=== PATIENT | female | born 1950 | race Asian ===

== ENCOUNTER 2024-01-18 23:11 | Inpatient (IN) | payer MEDICARE, SELFPAY ==
[2024-01-18] VITALS (7 sets, daily range): BP systolic 156–169; BP diastolic 75–89; BMI 23.9
[2024-01-18 19:24] LABS: % Basophils 0.1 % (0-2); % Eosinophils 1.1 % (0-6); % Immature Granulocytes 1.3 % (0-0.5); % Lymphocytes 20.6 % (20.5-51.1); % Monocytes 6.3 % (1.7-9.3); % Neutrophils 70.6 % (42.2-75.2); Absolute Eosinophils 0.2 10^3/uL (0-0.7); Absolute Immature Granulocytes 0.2 10^3/uL (0-0.05); Absolute Lymphocytes 2.9 10^3/uL (1.2-3.4); Absolute Monocytes 0.9 10^3/uL (0.1-0.6); Hematocrit 23.8 % (37.0-47.0); Hemoglobin 8.4 g/dL (12.0-16.0); Mean Corp Hgb Conc. 35.3 g/dL (33.0-37.0); Mean Corpuscular Hgb 29.3 pg (27.0-31.0); Mean Corpuscular Volume 82.9 fL (81.0-99.0); Mean Platelet Volume 9.7 fL (7.4-10.4); Nucleated Red Blood Cells % 0.1 %; Platelet Count 341 10^3/uL (130-400); Red Blood Cell Count 2.87 10^6/uL (4.20-5.40); Red Cell Dist. Width 13.6 % (11.5-14.5); White Blood Cell Count 14.2 10^3/uL (4.8-10.8)
[2024-01-18 19:45] LABS: ALT (SGPT) 24 U/L (0-35); AST (SGOT) 35 U/L (14-36); Albumin 4.4 g/dl (3.5-5.0); Alkaline Phosphatase 66 U/L (38-126); Blood Urea Nitrogen 12 mg/dl (7-17); Calcium 9.9 mg/dl (8.4-10.2); Carbon Dioxide 23 mmol/L (22-30); Chloride 85 mmol/L (98-107); Glucose 143 mg/dl (70-99); Potassium 4.2 mmol/L (3.5-5.1); Sodium 118 mmol/L (135-145); Total Bilirubin 1.2 mg/dl (0.2-1.3); Total Protein 7.3 g/dl (6.3-8.2); eGFR > 60.00
[2024-01-18 19:53] LABS: Troponin I < 0.012 ng/ml
--- NOTE | 2024-01-18 20:24 | ED.GENMED ---
History of Present Illness
General
Chief Complaint: Dizziness
Source: patient, spouse and family
Exam Limitations: none
Time Seen by Provider: 01/18/24 19:23
Nursing documentation reviewed up to this point in time: agreed with
Travel History
Have you had any contact with someone who has COVID-19?: No
Do you have any symptoms of coronavirus? Fever > 100 degrees, chills, cough, shortness of breath, sore throat, loss of taste or smell, muscle aches, or headache?: No
History of Present Illness
History of Present Illness:
73-year-old female with a past medical history of hypertension, hyperlipidemia, diabetes who presents to the emergency department with her family for evaluation of dizziness and headache. Patient had a left total knee replacement with Dr. Cedeno
this past . Since then she has had significant pain in the left knee. Initially this was treated with oxycodone which patient did not tolerate well with that she got drowsiness, dizziness, nausea and upset stomach. For this reason was
discontinued and instead patient was started on tramadol which produced similar side effects. This was also discontinued and since then patient has been taking just Tylenol with poor control of her pain. She has had persistent nausea she says
because the pain is quite severe. She has not been eating or drinking very much she says. She has not had any vomiting. Denies any diarrhea. She says that today she noticed she was starting to get headache and having worsening dizziness and so
she came to the emergency to be assessed.
Review of Systems
Review of Systems
All Other Systems: ROS reviewed and negative except as documented in HPI and ROS
Constitutional: Denies fever or chills
EENT: Denies sore throat or runny nose
Respiratory: Denies cough or trouble breathing
Cardiac: Denies chest pain or palpitations
ABD/GI: Reports nausea and constipated; Denies abdominal pain, vomiting or diarrhea
: Denies flank pain
Musculoskeletal: Reports joint pain (Left knee pain); Denies neck pain or back pain
Neurological: Reports dizzy and headache; Denies weakness or numbness
Phy Exam
Physical Exam
Physical Exam:
General: Awake, alert, oriented x3; no acute distress
Head: Normocephalic, atraumatic
Eyes: Conjunctiva normal, EOMI, pupils equal round reactive to light bilaterally
Throat: Airway intact, dry mucous membranes
Neck: Trachea midline, supple without meningismus
Lungs: Clear to auscultation bilaterally, no wheezing, rales, rhonchi
Heart: Regular rate and rhythm, no murmurs, gallops, or rubs
Abd: Soft, non distended, nontender
Neuro: Cranial nerves grossly intact, speech fluid
Extremities: Patient has dressing in place left knee no surrounding erythema or warmth, slight edema in the left lower extremity compared to the right; she has good pulses in all extremities
Scores
Heart Failure Risk
Heart Failure Risk Score: Not Applicable
Heart Score for Chest Pain Patients
STEMI patient?: Not applicable
Withdrawal Assessment of Alcohol
Withdrawal Assessment Completed?: Not applicable
Course
Orders/Labs/Results
Orders:
Orders
01/18/24 16:31
Electrocardiogram (*1) Urgent
Reason for Study: Chest Pain
EKG- Treatment ONCE
01/18/24 19:19
Complete Blood Count/With Diff Urgent
Comprehensive Metabolic Panel Urgent
Troponin I Urgent
01/18/24 20:10
NEPHROLOGY CONSULT Urgent
Consulting Provider: Alka Ruiz
Was physician already notified: Yes
Straight cath- Treatment ONCE
01/18/24 20:13
Ketorolac [Toradol] 15 mg IV NOW STA
01/18/24 20:25
Osmolality, Random Urine Urgent
Date Specimen was Collected: 01/18/24
Time Specimen was Collected: 20:16
Urine Creatinine Urgent
Date Specimen was Collected: 01/18/24
Time Specimen was Collected: 20:16
Urine Sodium Urgent
Date Specimen was Collected: 01/18/24
Time Specimen was Collected: 20:16
01/18/24 21:18
3% Sodium Chloride 250 ml [Sodium Chloride 3%] 250 ml IV ONCE
Abnormal Lab Results
01/18/24 01/18/24
19:19 20:25
WBC 14.2 H 10^3/uL
(4.8-10.8)
RBC 2.87 L 10^6/uL
(4.20-5.40)
Hgb 8.4 L g/dL
(12.0-16.0)
Hct 23.8 L %
(37.0-47.0)
Abs Immat Gran (auto) 0.2 H 10^3/uL
(0-0.05)
Absolute Neuts (auto) 10.0 H 10^3/uL
(1.4-6.5)
Absolute Monos (auto) 0.9 H 10^3/uL
(0.1-0.6)
Immature Gran % 1.3 H %
(0-0.5)
Sodium 118 L* mmol/L
(135-145)
Chloride 85 L mmol/L
(98-107)
Creatinine 0.5 L mg/dL
(0.6-1.0)
Glucose 143 H mg/dl
(70-99)
Urine Sodium 125 H mmol/L
(30-90)
01/18/24 19:19
01/18/24 19:19
Vital Signs
Initial and Last Documented VS:
Initial Vital Signs
Temp Pulse Resp BP Pulse Ox
36.7 C 85 20 158/81 100
01/18/24 16:26 01/18/24 16:26 01/18/24 16:26 01/18/24 16:26 01/18/24 16:26
Last Documented Vital Signs
Temp Pulse Resp BP Pulse Ox
37.0 C 84 25 165/78 98
01/18/24 20:02 01/18/24 20:02 01/18/24 20:02 01/18/24 20:02 01/18/24 20:02
MDM/Problems Addressed
Differential Diagnosis Includes:
Medication side effect, dehydration, electrolyte derangement
MDM/Problems Addressed:
73-year-old female presents for evaluation of headache and dizziness in the setting of recent surgery, poorly controlled knee pain and poor p.o. intake. Hypertensive but otherwise normal vitals. Physical exam as above. Plan to place an IV check
labs including CBC and a CMP. Check an EKG. Will treat headache with Toradol. Treat with IV fluids. Monitor closely reassess after the above.
Labs reviewed: CBC shows leukocytosis to 14.2 and anemia at 8.4�no priors available for comparison but suspect likely related to recent surgery. CMP shows hyponatremia to 118 with glucose of 143; creatinine normal. Added urine sodium and
osmolality. Initial plan was for normal saline bolus this was held pending nephrology recommendations�discussed with nephrology and will plan to provide fluid recommendations pending urine sodium and osmolality studies. Plan for admission pending
nephrology recommendations.
Urine sodium 125, urine osmolality 332. Discussed with nephrology recommended initiating 3% normal saline at 25 cc/h with every 4 hours sodium checks. Goal sodium 123 by the morning. Will admit for further management. Case discussed with
hospitalist for admission.
*Pulse Oximetry
Patient hypoxic: no
*EKG
Interpreted by ED Provider?: Yes
Heart Rate: 80
Rate: normal
Rhythm: sinus
[place]: normal axis
Interval: normal interval
QRS Pattern: normal QRS
Ischemia: no ischemia
*Critical Care Note
Total Time (30-74mins, 75-104mins- exclusive of procedures): Not Applicable
Data Reviewed
Source: patient, spouse and family
Patient Management
Discussion with other providers: Hospitalist (Discussed with hospitalist) and Director Of Design (Discussed with nephrology)
Escalation/DeEscalation of care consider admission/obs:
Admission indicated
ED Attending Note
-
Portions of this chart may have been created with voice recognition software.� Occasional wrong word or��sound alike� substitutions may have occurred due to the inherent limitations of voice recognition software.
Discharge Plan
Departure
Patient Disposition: Admit
Date of Disposition: 01/18/24
Time of Disposition: 21:19
Admit to doctor: Camron
Presentation/result/management discussed w/ accepting MD/DO: Hospitalist
Discharge Problem:
Acute hyponatremia
Prescriptions:
No Action
sennosides [senna] 8.6 mg Tablet
8.6 mg PO BIDPRN PRN (Reason: constipation-if bm aftr miralax)
acetaminophen [Tylenol] 325 mg Tablet
650 mg PO Q4HPRN PRN (Reason: mild pain)
polyethylene glycol 3350 [Miralax] 17 gram Powder In Packet
17 g PO DAILYPRN PRN (Reason: constipation)
aspirin 81 mg Tablet,Delayed Release (Dr/Ec)
81 mg PO DAILY
famotidine [Pepcid] 20 mg Tablet
20 mg PO DAILY
metformin 1,000 mg Tablet
1,000 mg PO BID
bisacodyl [Dulcolax (bisacodyl)] 5 mg Tablet,Delayed Release (Dr/Ec)
10 mg PO DAILYPRN PRN (Reason: constipation)
losartan-hydrochlorothiazide 50-12.5 mg Tablet
1 tab PO DAILY
simethicone [Gas-X] 80 mg Tablet,Chewable
80 mg PO TIDPRN PRN (Reason: gas pains)
cholecalciferol (vitamin D3) [Vitamin D3] 25 mcg (1,000 unit) Tablet
25 mcg PO DAILY
Lipitor
1 tab PO DAILY
Patient Comments:
no record at pharamcy or ecw or dose or directions
Referrals:
UNKNOWN - PT DOES,NOT KNOW [Unknown Provider] -
Interventions
Interventions:
*Risk Screen - Suicide Last Done: 01/18/24 16:26
*General Assessment Last Done: 01/18/24 16:26
*Neglect/Abuse Screening Last Done: 01/18/24 16:26
ED- Neurological Assessment Last Done: 01/18/24 20:00
[2024-01-18] MEDS: TORADOL 15 MG IV (20:29)
[2024-01-18 20:36] LABS: Osmolality Urine 332 mOsm/kg (300-900)
[2024-01-18 20:52] LABS: Urine Sodium 125 mmol/L (30-90)
[2024-01-18] MEDS: SODIUM CHLORIDE 3% 250 IV (22:06)
--- NOTE | 2024-01-18 22:55 | HPS.HSE ---
Addendum entered and electronically signed by Yang Lyon DO 01/19/24 00:08:
Patient seen and examined independently. Agree with findings and plan as set forth by Salma Damian PA-C.
Patient is a 73y F with PMH significant for hypertension, DM-II and recent L TKA (01/12/24) who presents to ED complaining of headache and dizziness. Patient states that JOSEPH is 10/10 and in the frontal / apical areas. Patient took 2 doses of
oxycodone following her surgery and began to feel dizzy / drowsy. Family notes that she has had very poor PO intake since the procedure. She has been taking tramadol and meloxicam for pain instead of the oxycodone. She had initial post-op
constipation and took bowel regimen. She has had subsequent diarrhea. Patient has had headache for the past 2 days and presented to the ED today for evaluation.
She denies history of severe / chronic headaches. She denies any prior history of sodium issues, hyponatremia.
In the ED, patient complains of heartburn in addition to her headache.
Ass:
Severe Symptomatic Hyponatremia
s/p Left TKA
GERD
Normocytic Anemia / Blood Loss Anemia
Benign Hypertension
DM-II
Plan:
Admit to ICU for further evaluation and treatment.
Hypertonic saline gently overnight and follow frequent Na levels for goal Na = 123 by the AM.
CT head done in the ED without obvious abnormality.
Hold HCTZ / NSAIDs.
Nephrology evaluation in the AM.
Supportive care including pain control / headache treatment.
Monitor for any new/ worsening symptoms.
PT / OT evaluations once stable for continued L knee therapy.
Check TFTs, cortisol, etc.
Original Note:
Family Physician
-
Family Physician: Isabela Lazaro
Chief Complaint
-
Headache
History of Present Illness
Patient is a 73 y/o female with PMH of hypertension, hyperlipidemia, and diabetes mellitus type II who presents s/p total left knee replacement on 01/12/24 complaining of severe headache and dizziness. Following her surgery, patient took 2
doses of oxycodone after which she experienced drowsiness, dizziness, and abdominal discomfort. The oxycodone was discontinued and she was prescribed tramadol which gave her a similar adverse reaction. She has since been taking Tylenol with poor
pain control. She reports very minimal PO intake since her surgery. She was constipated which resolved with taking Senna and drinking prune juice, then she developed subsequent diarrhea. She reports 10/10 headache pain for the past few days and says
it kept her from participating in her PT session today. She admits to normal urine output since her surgery. She admits to taking Meloxicam as outpatient since the surgery. She denies fever, chills, and palpitations.
Medical History
Past Medical History
Past Medical History: Reports Other
Additional Past Medical History:
Essential Hypertension
Hyperlipidemia
Diabetes Mellitus, Type II
Osteoarthritis
Past Surgical History: Reports Other
Additional Past Surgical History:
Left Total Knee Replacement
Social History
Tobacco: Non-smoker
Alcohol: None
Family History
Family History: Not pertinent
Allergies / Home Medications
Allergies reflects when Allergies were last updated in [email or web address].
Home Medications with original date entered in [email or web address]
Allergy/Medication List:
Allergies
Allergy/AdvReac Type Severity Reaction Status Date / Time
acetaminophen [From Percocet] Allergy Nausea Verified 01/18/24 16:25
oxycodone [From Percocet] Allergy Nausea Verified 01/18/24 16:25
Penicillins Allergy Unknown Verified 01/18/24 16:25
Sulfa (Sulfonamide Allergy Unknown Verified 01/18/24 16:25
Antibiotics)
tramadol Allergy Nausea Verified 01/18/24 16:25
Home Medications
Lipitor 1 tab PO DAILY 01/18/24
acetaminophen 325 mg tablet (Tylenol) 650 mg PO Q4HPRN PRN mild pain 01/18/24
aspirin 81 mg tablet,delayed release 81 mg PO DAILY 01/18/24
bisacodyl 5 mg tablet,delayed release (Dulcolax (bisacodyl)) 10 mg PO DAILYPRN PRN constipation 01/18/24
cholecalciferol (vitamin D3) 25 mcg (1,000 unit) tablet (Vitamin D3) 25 mcg PO DAILY 01/18/24
famotidine 20 mg tablet (Pepcid) 20 mg PO DAILY 01/18/24
losartan 50 mg-hydrochlorothiazide 12.5 mg tablet 1 tab PO DAILY 01/18/24
metformin 1,000 mg tablet 1,000 mg PO BID 01/18/24
polyethylene glycol 3350 17 gram oral powder packet (Miralax) 17 g PO DAILYPRN PRN constipation 01/18/24
sennosides 8.6 mg tablet (senna) 8.6 mg PO BIDPRN PRN constipation-if bm aftr miralax 01/18/24
simethicone 80 mg chewable tablet 80 mg PO TIDPRN PRN gas pains 01/18/24
Meloxicam 7.5mg PO BID
Review of Systems
-
A 12 point ROS was completed and negative except as noted: Yes
Constitutional: Denies Fever or Chills
Respiratory: Denies Cough or Trouble Breathing
Cardiac: Denies Chest Pain or Palpitations
Abdomen/GI: Reports See HPI
Physical Exam
Vital Signs
Vital Signs
Temp Pulse Resp BP Pulse Ox
98.6 F 84 17 156/76 100
01/18/24 20:02 01/18/24 22:07 01/18/24 22:07 01/18/24 22:07 01/18/24 22:07
Physical Exam
General: Well Developed, Well Nourished and No Apparent Distress
HEENT: NormoCephalic and Anicteric
Respiratory: Clear and Non Labored Respirations
Cardiac: S1/S2 and Regular Rhythm
GI: Soft, Non Tender and Non Distended
Rectal: Deferred by Provider
Musculoskeletal: No Clubbing, No Cyanosis and Other (Left Knee with aquacel dressing in place)
Skin: Warm and Dry
Neuro: Awake, Alert, Oriented and Nonfocal/grossly intact
Laboratory Results
-
01/18/24 19:19
01/18/24 19:19
Laboratory Results
Total Bilirubin 1.2 mg/dl (0.2-1.3) 01/18/24 19:19
AST 35 U/L (14-36) 01/18/24 19:19
ALT 24 U/L (0-35) 01/18/24 19:19
Alkaline Phosphatase 66 U/L (38-126) 01/18/24 19:19
Troponin I < 0.012 ng/ml 01/18/24 19:19
Data Reviewed
-
Lab Data: Labs Reviewed by me
Impression/Plan
-
Acute / Severe Hyponatremia
-Admit to ICU for close monitoring and frequent sodium check
-Consult Nephrology
-Continue 3% sodium solution
-Monitor sodium every 4 hours
-Hold HCTZ
-Hold Meloxicam
Normocytic Anemia
-No prior labs for comparison, but suspect post-op blood loss
-Check iron studies
-Monitor Hgb closely
Essential Hypertension
-Continue losartan
-HCTZ on hold due to hyponatremia
Diabetes Mellitus, Type II
-Hold metformin
-Monitor sugars and continue coverage insulin
Recent Left Total Knee Replacement on Jan 12
-Consult PT/OT
-Continue Tylenol for pain
-Avoid NSAIDs
DVT proph: SCDs
Code Status: Full Code
[2024-01-18 23:44] LABS: Iron 74 ug/dl (37-170)
[2024-01-18 23:48] LABS: Percent Saturation 22 % (20-50); Total Iron Binding Capacity 325 ug/dl (265-497)
[2024-01-19] VITALS (37 sets, daily range): BP systolic 100–180; BP diastolic 64–108; PULSE 88–124; O2SAT 95; BMI 21.5
[2024-01-19] MEDS: MAALOX 30 ML PO (00:52)
[2024-01-19 01:03] LABS: Folate 10.7 ng/ml (2.76-20); Vitamin B12 742 pg/ml (239-931)
[2024-01-19] MEDS: OFIRMEV 100 IV (01:17)
[2024-01-19] MEDS: ATIVAN 0.5 MG IV (01:18)
[2024-01-19] MEDS: BENADRYL 25 MG IV (01:18)
[2024-01-19] MEDS: REGLAN 10 MG IV (01:18)
[2024-01-19 01:35] LABS: INR 1.04; PT 13.6 Sec (11.4-14.6)
[2024-01-19 01:36] LABS: APTT 36.8 Sec (23.4-35.0)
--- NOTE | 2024-01-19 01:37 | PTCARENOTE ---
received patient from ER. pt admits to 10/10 head pain, feels like an aching, sensitive to light. oriented x3. pupils b/l 2mm sluggish. SR on monitor. afebrile. + pulses. on RA, denies SOB. + bowel sounds. labs sent. medication given for head pain -
see JAN. SCDs on. dressing to left knee from surgery C/D/I. family at bedside, updated by this RN and the ICU [employer] TE[employer]IC. daughter staying overnight. plan of care ongoing.
[2024-01-19 01:38] LABS: Blood Urea Nitrogen 12 mg/dl (7-17); Calcium 9.5 mg/dl (8.4-10.2); Carbon Dioxide 27 mmol/L (22-30); Chloride 86 mmol/L (98-107); Estimated Creatinine Clearance 50 ml/min; Glucose 131 mg/dl (70-99); Potassium 3.7 mmol/L (3.5-5.1); Sodium 120 mmol/L (135-145); eGFR > 60.00
--- NOTE | 2024-01-19 05:32 | PTCARENOTE ---
patient reassessed. pt drowsy but oriented x3. admits that JOSEPH has improved after medication. ice pack given for dull ache. otherwise assessents unchanged. daughter at bedside overnight. 3% NS remains infusing. Na improved to 120 on 0100 BMP. AM labs
attempted, phlebotomy contacted to draw. plan of care ongoing.
[2024-01-19 06:40] LABS: Hematocrit 22.8 % (37.0-47.0); Hemoglobin 7.8 g/dL (12.0-16.0); Mean Corp Hgb Conc. 34.2 g/dL (33.0-37.0); Mean Corpuscular Hgb 28.8 pg (27.0-31.0); Mean Corpuscular Volume 84.1 fL (81.0-99.0); Mean Platelet Volume 11.5 fL (7.4-10.4); Platelet Count 313 10^3/uL (130-400); Red Blood Cell Count 2.71 10^6/uL (4.20-5.40); Red Cell Dist. Width 13.6 % (11.5-14.5); White Blood Cell Count 11.2 10^3/uL (4.8-10.8)
[2024-01-19 07:01] LABS: Blood Urea Nitrogen 11 mg/dl (7-17); Calcium 9.3 mg/dl (8.4-10.2); Carbon Dioxide 27 mmol/L (22-30); Chloride 91 mmol/L (98-107); Estimated Creatinine Clearance 50 ml/min; Glucose 121 mg/dl (70-99); Magnesium 1.4 mg/dl (1.6-2.3); Potassium 4.1 mmol/L (3.5-5.1); Sodium 123 mmol/L (135-145); eGFR > 60.00
[2024-01-19 07:31] LABS: Cortisol, Random 9.5 ug/dl
[2024-01-19 07:38] LABS: TSH Reflex To Free T4 5.74 uIU/ml (0.47-4.68)
[2024-01-19] MEDS: NOVOLOG FLEXPEN-LOW RESISTANCE SC (07:45)
[2024-01-19] MEDS: COZAAR 50 MG PO (07:45)
[2024-01-19] MEDS: ASPIR LOW (ENTERIC COATED) 81 MG PO (07:45)
[2024-01-19] MEDS: PROTONIX IV 40 MG IV (07:46)
[2024-01-19] MEDS: PEPCID 20 MG PO (07:46)
[2024-01-19] MEDS: VITAMIN D3 (cholecalciferol) 25 MCG PO (07:46)
--- NOTE | 2024-01-19 07:51 | CON.ORTHO ---
Addendum entered and electronically signed by Salbador Cedeno MD 01/19/24 16:05:
I evaluated the patient at bedside and reviewed labs and clinical data. The patient reports felling better today than yesterday. Knee pain well controlled
The patient is awake and alert. Left knee bandage CDI. NV intact distally.
73F 1 week sp left TKA 01/12/24.
- Appreciate medical recommendations for hyponatremia
- Pain control PRN
- Discussed working on left knee ROM
- Dressing to remain in place until 2 weeks post op follow up
- PT/OT as able given medical status, okay up out of bed
- Continue ASA daily for DVT ppx
Madhu Cedeno MD
-
Original Note:
Consultation
-
Date/Time Consultation Requested: 01/19/2024
Date/Time Consultation Performed: 01/19/2024
Requesting Provider: Salma Mohr PA-C
Performing Provider: Dominique Taylor PA-C, for Dr. Andrzej Heaton
Reason for Consultation: Hyponatremia s/p left TKA on 01/12/2024
Consultation - Orthopedics
History
HPI: This is a 73-year-old female who was admitted to [facility] with hyponatremia. She is now 1 week status post a left total knee arthroplasty. This was performed under the direction of Dr. Cedeno on 01/12/2024 on an outpatient basis at
[facility] surgical suites. Postoperatively, she was unable to tolerate the oxycodone or tramadol. Both medications caused dizziness as well as abdominal discomfort. She did initially have constipation, which resolved with senna. Ultimately,
she did end up with diarrhea. Following the surgery, she has also had minimal appetite, and a poor oral intake. She has attended 1 session of outpatient physical [facility] at [facility], but was unable to progress much due to the dizziness,
headache, and fatigue. The dizziness and headache is what prompted her to present to [facility] last evening where she was noted to have a sodium level of 118. A CT scan of the head was also performed and negative for any acute
abnormalities. She was admitted to the ICU for further management. Upon my arrival this morning, the patient was very somnolent. Most of her history was obtained from her daughter.
Past medical history: Significant for hyperlipidemia, hypertension, type 2 diabetes, GERD.
Past surgical history: Left TKA.
Family history: Noncontributory.
Social history: Denies tobacco or alcohol use. Lives at home with family.
Review of systems: Unable to obtain secondary to somnolence
Allergies / Home Medications
Allergy/AdvReac Type Severity Reaction Status Date / Time
acetaminophen [From Percocet] Allergy Nausea Verified 01/18/24 16:25
oxycodone [From Percocet] Allergy Nausea Verified 01/18/24 16:25
Penicillins Allergy Unknown Verified 01/18/24 16:25
Sulfa (Sulfonamide Allergy Unknown Verified 01/18/24 16:25
Antibiotics)
tramadol Allergy Nausea Verified 01/18/24 16:25
Medication Instructions Recorded
Lipitor 1 tab PO DAILY 01/18/24
acetaminophen 325 mg tablet 650 mg PO Q4HPRN PRN mild pain 01/18/24
(Tylenol)
aspirin 81 mg tablet,delayed 81 mg PO DAILY 01/18/24
release
bisacodyl 5 mg tablet,delayed 10 mg PO DAILYPRN PRN constipation 01/18/24
release (Dulcolax (bisacodyl))
cholecalciferol (vitamin D3) 25 25 mcg PO DAILY 01/18/24
mcg (1,000 unit) tablet (Vitamin
D3)
famotidine 20 mg tablet (Pepcid) 20 mg PO DAILY 01/18/24
losartan 50 mg-hydrochlorothiazide 1 tab PO BID 01/18/24
12.5 mg tablet
meloxicam 7.5 mg tablet 7.5 mg PO DAILY 01/18/24
metformin 1,000 mg tablet 1,000 mg PO BID 01/18/24
polyethylene glycol 3350 17 gram 17 g PO DAILYPRN PRN constipation 01/18/24
oral powder packet (Miralax)
sennosides 8.6 mg tablet (senna) 8.6 mg PO BIDPRN PRN 01/18/24
constipation-if bm aftr miralax
simethicone 80 mg chewable tablet 80 mg PO TIDPRN PRN gas pains 01/18/24
Vital Signs / Lab Results
Temp Pulse Resp BP Pulse Ox
97.2 F 81 15 142/73 98
01/19/24 07:40 01/19/24 07:45 01/19/24 07:15 01/19/24 07:45 01/19/24 07:15
01/19/24 06:07
Physical examination:
General: Well-developed, well-nourished female. Resting comfortably in bed.
HEENT: Atraumatic, normocephalic.
Heart: Regular rate and rhythm.
Lungs: Normal breathing on room air, no audible wheezing.
Left knee: Dressing in place over anterior aspect of knee is clean, dry, and intact. Mild swelling. Minimal ecchymoses. Calf soft and nontender to palpation. Gentle range of motion without significant discomfort.
Assessment / Plan
Assessment: Hyponatremia status post left TKA on 01/12/2024.
Plan: Unfortunately, Ms. Solomon developed symptomatic hyponatremia following her knee replacement 1 week ago. Overall, her knee examines well this morning. She was very somnolent on exam, so I tried not to disturb her too much. Appreciate
attending medical providers efforts in replenishing sodium levels. Will need to find adequate pain management regimen going forward that she can tolerate, but for now continue with Tylenol as needed. Once medically stable, may resume PT to
tolerance. Will continue to follow along while she is inpatient.
[2024-01-19 08:09] LABS: Free T4 1.76 ng/dl (0.78-2.19)
--- NOTE | 2024-01-19 08:20 | CON.INTV ---
Consultation
Consultation Request
Date/Time Consultation Requested: 01/19/202439
Date/Time Consultation Performed: 01/19/2024818
Requesting Provider: Salma Damian PA-C
Performing Provider: Dr. Mancia
Reason for Consultation: Severe hyponatremia
Medical History
-
Chief Complaint: Dizziness
History of Present Illness:
73-year-old female with past medical history of hypertension, DM type II and hyperlipidemia who presents with high blood pressure and dizziness that started on the morning of arrival to the ER. Patient says she had knee surgery on [employer], and
has been taking oxycodone which caused dizziness and nausea. Patient also endorsed headache in the ER. Vitals initially showed she was afebrile to 98.6 �F, WA: 79 bpm, RR: 17 breaths/min, initial BP 168/77 and SpO2 100% on room air. Labs showed
hyponatremia to 118, hypochloremia to 85, glucose 143, WBC 14.2, Hb 8.4, and platelet count 341. Urine sodium elevated at 125 and urine osmolarity 322. 3% NS was ordered for the patient and Toradol given for the headache. Patient was transferred
to the ICU for further care and critical care services consulted for additional management/recommendations.
When I saw the patient she was sitting in the chair, in no acute distress, saying she still has headache but is much improved compared to admission. It is 3 out of 10 on pain scale and located in the front of her forehead. She is on room air
saturating 100%. Last sodium this morning is 123. She currently denies chest pain, shortness of breath, abdominal pain, nausea, fevers or chills.
PMHx: Hypertension, DM type II, osteoarthritis, hyperlipidemia
PSHx: Left TKA
Past Medical History
Past Medical History: Other (above as per HPI)
Past Surgical History: Other (above as per HPI)
Social History
Tobacco: Non-smoker
Alcohol: None
Drug: None
Living: With Family
Family History
Family History: Reviewed & Not Pertinent
Allergies / Home Medications
Allergies
Allergy/AdvReac Type Severity Reaction Status Date / Time
acetaminophen [From Percocet] Allergy Nausea Verified 01/18/24 16:25
oxycodone [From Percocet] Allergy Nausea Verified 01/18/24 16:25
Penicillins Allergy Unknown Verified 01/18/24 16:25
Sulfa (Sulfonamide Allergy Unknown Verified 01/18/24 16:25
Antibiotics)
tramadol Allergy Nausea Verified 01/18/24 16:25
Home Medications
Medication Instructions Recorded Confirmed Last Taken Type
Lipitor 1 tab PO DAILY 01/18/24 01/18/24 Unknown History
acetaminophen 325 mg tablet 650 mg PO Q4HPRN PRN mild pain 01/18/24 01/18/24 01/18/24 History
(Tylenol)
aspirin 81 mg tablet,delayed 81 mg PO DAILY 01/18/24 01/18/24 Unknown History
release
bisacodyl 5 mg tablet,delayed 10 mg PO DAILYPRN PRN constipation 01/18/24 01/18/24 01/12/24 History
release (Dulcolax (bisacodyl))
cholecalciferol (vitamin D3) 25 25 mcg PO DAILY 01/18/24 01/18/24 Unknown History
mcg (1,000 unit) tablet (Vitamin
D3)
famotidine 20 mg tablet (Pepcid) 20 mg PO DAILY 01/18/24 01/18/24 01/18/24 History
losartan 50 mg-hydrochlorothiazide 1 tab PO BID 01/18/24 01/18/24 Unknown History
12.5 mg tablet
meloxicam 7.5 mg tablet 7.5 mg PO DAILY 01/18/24 01/18/24 Unknown History
metformin 1,000 mg tablet 1,000 mg PO BID 01/18/24 01/18/24 01/17/24 History
polyethylene glycol 3350 17 gram 17 g PO DAILYPRN PRN constipation 01/18/24 01/18/24 01/17/24 History
oral powder packet (Miralax)
sennosides 8.6 mg tablet (senna) 8.6 mg PO BIDPRN PRN 01/18/24 01/18/24 01/17/24 History
constipation-if bm aftr miralax
simethicone 80 mg chewable tablet 80 mg PO TIDPRN PRN gas pains 01/18/24 01/18/24 01/18/24 History
Review of Systems
-
History Source: Patient
All other systems: Negative unless noted (12 point ROS performed and is negative unless mentioned above.)
Vitals / Labs / Diagnostic Testing
Vital Signs
Temp Pulse Resp BP Pulse Ox
97.2 F 76 16 167/86 97
01/19/24 07:40 01/19/24 08:15 01/19/24 08:15 01/19/24 08:00 01/19/24 08:15
Lab Data
01/19/24 06:07
Laboratory Results
01/19/24
01:06
PT 13.6
INR 1.04
APTT 36.8 H
Diagnostic Testing:
Physical Exam
-
HEENT: Normocephalic and Anicteric
Cardiovascular: S1/S2 and Peripheral Edema (negative)
Respiratory: Clear, Wheeze (negative), Rales (negative), Rhonchi (negative) and Non-Labored Respirations
GI: Soft, Non Distended and Non Tender
Neurology: AO x 3
Skin: Warm and Dry
General: Comfortable and Chills (negative)
Assessment
-
Assessment: 73-year-old female with past medical history of hypertension, DM type II and hyperlipidemia who presents with high blood pressure and dizziness that started on the morning of arrival to the ER. Patient says she had knee surgery on
[employer], and has been taking oxycodone which caused dizziness and nausea. Patient also endorsed headache in the ER. Vitals initially showed she was afebrile to 98.6 �F, WA: 79 bpm, RR: 17 breaths/min, initial BP 168/77 and SpO2 100% on room
air. Labs showed hyponatremia to 118, hypochloremia to 85, glucose 143, WBC 14.2, Hb 8.4, and platelet count 341. Urine sodium elevated at 125 and urine osmolarity 322. 3% NS was ordered for the patient and Toradol given for the headache.
Patient was transferred to the ICU for further care and critical care services consulted for additional management/recommendations.
Chronic medical conditions [employer]: Hypertension, DM type II, osteoarthritis, hyperlipidemia
Impression:
#Severe hyponatremia s/p 3% - likely due to reduced PO intake (given low serum Cl) in setting of HCTZ use (which explains the high Diony); SIADH also on differential
#Anemia
#Recent left [facility] [place]
#HTN
#Headache
Plan:
- Nephrology consulted ---> 3% going to be resumed
- continue to trend serum Na q4hr
- Careful not to over-correct Na level --> goal correction of <8-10mmol/L in 24 hrs, and <16-18mmol/L in 48 hrs
- Hold HCTZ or any other medication that cause hyponatremia at this time
- Pain control - avoid opiates as that can cause SAIDH
- Check serum uric acid --> 3.8
- Maintain MAP>65
- Maintain euglycemia with goal BG 140-180
- Replete K>3.5, Mg>1.8
- DVT ppx
Dispo: Downgrade out of ICU to IMU assuming her afternoon serum Na is greater than 120. Once patient is downgraded then the bottling room worker/pulmonary service will sign off. Thank you for allowing us to be involved in the care of this patient. Please
reconsult if there are any additional questions/concerns, or if respiratory issues develop.
Data:
CT Head 01-18-2024:No acute intracranial abnormality noted.
--- NOTE | 2024-01-19 09:52 | PTCARENOTE ---
recd pt 0715 handoff in room, family present. VS noted. c/o headache persisting denies need for pain med at this time, light sensitive. OOB assist 1 and RW to BSC then recliner, tolerated. 3% saline infused, repeat labs pending this am. Seen by
Dr. Mary. Updated on plan of care, no questions at this time.
--- NOTE | 2024-01-19 11:04 | W.CON.NEPH ---
Consultation
-
Date/Time Consultation Requested: 01/18/242009
Date/Time Consultation Performed: 01/19/24 1115
Requesting Provider: Yang Potts
Performing Provider: Alka Jean
Reason for Consultation: hyponatremia
Medical History
-
Chief Complaint: JOSEPH and dizzy
History of Present Illness:
73y F with PMH significant for hypertension, DM-II on metformin, HTN on Losartan and HCTZ, and recent L TKA (01/12/24) who presents to ED complaining last night of headache and dizziness.Reportedly pt could not tolerate oxy or tramadol with SEs,
dizzy, drowzy and later decreased po intake. �She repoertedly also on meloxicam for pain which also gave same symp.� She had initial post-op constipation and took bowel regimen and later had subsequent diarrhea.� Patient has had headache for the
past [address] [employer] [address]. On admit sodium was at 118, U osmo 332, U na 125. She was started on 3% saline overnight and sodium improved to 123 this am.
She denies any prior history of sodium issues, hyponatremia.
Past Medical History
Essential Hypertension
Hyperlipidemia
Diabetes Mellitus, Type II
Osteoarthritis
Past Surgical History: Other (Left Total Knee Replacement)
Social History
Tobacco: Non-Smoker
Drug: None
Living: With Family
Family History
sister with ESRD
Allergies / Home Medications
Allergy/AdvReac Type Severity Reaction Status Date / Time
acetaminophen [From Percocet] Allergy Nausea Verified 01/18/24 16:25
oxycodone [From Percocet] Allergy Nausea Verified 01/18/24 16:25
Penicillins Allergy Unknown Verified 01/18/24 16:25
Sulfa (Sulfonamide Allergy Unknown Verified 01/18/24 16:25
Antibiotics)
tramadol Allergy Nausea Verified 01/18/24 16:25
Medication Instructions Recorded Confirmed Type
Lipitor 1 tab PO DAILY 01/18/24 01/18/24 History
acetaminophen 325 mg tablet 650 mg PO Q4HPRN PRN mild pain 01/18/24 01/18/24 History
(Tylenol)
aspirin 81 mg tablet,delayed 81 mg PO DAILY 01/18/24 01/18/24 History
release
bisacodyl 5 mg tablet,delayed 10 mg PO DAILYPRN PRN constipation 01/18/24 01/18/24 History
release (Dulcolax (bisacodyl))
cholecalciferol (vitamin D3) 25 25 mcg PO DAILY 01/18/24 01/18/24 History
mcg (1,000 unit) tablet (Vitamin
D3)
famotidine 20 mg tablet (Pepcid) 20 mg PO DAILY 01/18/24 01/18/24 History
losartan 50 mg-hydrochlorothiazide 1 tab PO BID 01/18/24 01/18/24 History
12.5 mg tablet
meloxicam 7.5 mg tablet 7.5 mg PO DAILY 01/18/24 01/18/24 History
metformin 1,000 mg tablet 1,000 mg PO BID 01/18/24 01/18/24 History
polyethylene glycol 3350 17 gram 17 g PO DAILYPRN PRN constipation 01/18/24 01/18/24 History
oral powder packet (Miralax)
sennosides 8.6 mg tablet (senna) 8.6 mg PO BIDPRN PRN 01/18/24 01/18/24 History
constipation-if bm aftr miralax
simethicone 80 mg chewable tablet 80 mg PO TIDPRN PRN gas pains 01/18/24 01/18/24 History
Review of Systems
-
all complete 12 point ROS have been inquired and found negative other than stated in HPI
Physical Exam
Vital Signs
Vital Signs
Temp Pulse Resp BP Pulse Ox
97.2 F 76 16 167/86 97
01/19/24 07:40 01/19/24 08:15 01/19/24 08:15 01/19/24 08:00 01/19/24 08:15
Lab Results
WBC 11.2 10^3/uL (4.8-10.8) H 01/19/24 06:07
RBC 2.71 10^6/uL (4.20-5.40) L 01/19/24 06:07
Hgb 7.8 g/dL (12.0-16.0) L 01/19/24 06:07
Hct 22.8 % (37.0-47.0) L 01/19/24 06:07
Plt Count 313 10^3/uL (130-400) 01/19/24 06:07
Potassium Cancelled 01/19/24 13:00
Chloride Cancelled 01/19/24 13:00
Carbon Dioxide Cancelled 01/19/24 13:00
BUN Cancelled 01/19/24 13:00
Creatinine Cancelled 01/19/24 13:00
eGFR Cancelled 01/19/24 13:00
Glucose Cancelled 01/19/24 13:00
Calcium Cancelled 01/19/24 13:00
Albumin 4.4 g/dl (3.5-5.0) 01/18/24 19:19
CT head negative for acute change
U osmo 332, U na 125
TSH 5.74, FT4 1.76
Physical Exam
General: Awake, Alert, Oriented and AOx3
HEENT: EOMI and Anicteric
Respiratory: Clear, Normal Excursion and Nonlabored Respirations
Cardiac: S1/S2 and Regular Rate/Rhythm
Abdomen: Soft, Nontender and Nondistended
Musculoskeletal: No Clubbing, No Cyanosis and No Edema
Skin: No Rash
Neuro: Nonfocal/Grossly Intact
Psych: Mood/afflect pleasant, Insight/judgement good and Appropriate
Assessment/Plan
-
IMP:
Severe Symptomatic Hyponatremia
s/p Left TKA 01/09
GERD
Normocytic Anemia / Blood Loss Anemia
Benign Hypertension
DM-II
Hypomagnesemia
Plan:
A/w symptomatic hyponatremia level of 118
suspect multifactorial, ADH mediated U osmo 332, U na high
Was on HCTZ, poor po intake, NSAIDs, Pain
sodium improving appropriately with 3% saline overnight
repeat is pending , may resume 3% if needed, q4h labs
gold sodium close to 130 by tomorrow
no HCTZ indefinitely
TSH slightly up but FT4 normal, cortisol ok
replace mg
BP are high increase Losartan, add amlodipine
follow h/h adequate Fe stores
pain control
d/w nursing
Data Reviewed
-
Radiology: Report Reviewed by me
Labs: Labs Reviewed by me and Discussed with Nurse
[2024-01-19 11:21] LABS: Sodium 120 mmol/L (135-145)
--- NOTE | 2024-01-19 11:38 | CM ---
CM following re: discharge planning.
Reviewed pt's chart, met with pt and pt's daughter and pt's nephew at bedside.
Pt is a 73 year old female, admitted with primary dx of Severe Symptomatic Hyponatremia. S/P Left TKA 01/09/24.
Per daughter, pt lives with and a son in a 2SH, 2 steps to enter. Pt's daughter described the pt as independent in all areas [employer], walking with a walker during PT session at [facility] outpatient therapy center in [place]. Pt's daughter
stated that pt will return back home at discharge and pt will resume outpatient PT/OT at [facility].
PCP: Isabela Lazaro
Pharmacy: [facility]
D/C plan: return back home with resumptions of outpatient PT/OT at [facility].
CM will follow with discharge plan updates as hospitalization progresses
--- NOTE | 2024-01-19 11:55 | W.PN.HOSP.TC ---
Today's Communication/Plan
-
Trend BMP
Blood pressure medication adjustment
Discontinue HCTZ
PT/OT
Assessment / Plan
Assessment / Plan
Acute symptomatic severe Hyponatremia
-Admit to ICU for close monitoring and frequent sodium check
-Consult Nephrology
-Sodium at 120 and agree with repeat hypertonic saline
-Continue 3% sodium solution
-Monitor sodium every 4 hours
-DC HCTZ indefinitely
-Hold Meloxicam
Normocytic Anemia
-No prior labs for comparison, but suspect post-op blood loss
-Check iron studies
-Monitor Hgb closely
Essential Hypertension
-Continue losartan and dose adjusted to twice daily
-HCTZ discontinued
-Norvasc 5 mg started
HypoMag
-replete
Lightheadness
-?due to decrease po intake, blood loss etc.
-check orthostatics
Diabetes Mellitus, Type II
-Hold metformin. A1C at 7
-Monitor sugars and continue coverage insulin
Recent Left Total Knee Replacement on Jan 12
-Consult PT/OT
-Continue Tylenol for pain
-Avoid NSAIDs
-Orthopedic following along. Aspirin for DVT prophylaxis
DVT proph: SCDs
Code Status: Full Code
Discussed with daughter at bedside in detail.
Anticipated Discharge: > 48 hours
Subjective/Interval History
-
Date of Service: January 19, 2024
States that headache is improved
States of mild lightheadedness upon standing
States that her knee pain is controlled
Objective Data
-
Labs:
Laboratory Results
01/19/24 01/19/24 01/19/24
01:06 06:00 06:07
WBC 11.2 H
Hgb 7.8 L
Hct 22.8 L
Plt Count 313
PT 13.6
INR 1.04
APTT 36.8 H
Sodium 120 L Cancelled 123 L
Potassium 3.7 Cancelled 4.1
Chloride 86 L Cancelled 91 L
Carbon Dioxide 27 Cancelled 27
BUN 12 Cancelled 11
Creatinine 0.5 L Cancelled 0.6
Glucose 131 H Cancelled 121 H
Calcium 9.5 Cancelled 9.3
01/19/24 01/19/24 01/19/24
09:00 10:53 13:00
WBC
Hgb
Hct
Plt Count
PT
INR
APTT
Sodium Cancelled 120 L Cancelled
Potassium Cancelled Cancelled
Chloride Cancelled Cancelled
Carbon Dioxide Cancelled Cancelled
BUN Cancelled Cancelled
Creatinine Cancelled Cancelled
Glucose Cancelled Cancelled
Calcium Cancelled Cancelled
01/19/24 01/19/24 01/19/24
15:00 16:19 19:00
WBC
Hgb
Hct
Plt Count
PT
INR
APTT
Sodium Pending Cancelled Pending
Potassium
Chloride
Carbon Dioxide
BUN
Creatinine
Glucose
Calcium
01/19/24 01/19/24
22:19 23:00
WBC
Hgb
Hct
Plt Count
PT
INR
APTT
Sodium Cancelled Pending
Potassium
Chloride
Carbon Dioxide
BUN
Creatinine
Glucose
Calcium
Vital Signs:
Vital Signs
Temp Pulse Resp BP Pulse Ox
98.2 F 87 25 161/81 100
01/19/24 11:43 01/19/24 11:20 01/19/24 11:20 01/19/24 11:20 01/19/24 10:15
I&O
01/18/24 01/19/24 01/20/24
06:59 06:59 06:59
Intake Total 300 / 300 280 / 280
Output Total 500 / 500
Balance 300 / 300 -220 / -220
Physical Exam
-
General: Well Developed and No Apparent Distress
HEENT: Normocephalic, Atraumatic and Moist Mucous Membranes
Respiratory: Clear to Auscultation
Cardiac: Regular Rhythm and S1/S2; Negative Murmur, Rub or Gallop
GI: Soft, Nontender, Nondistended and Normal Bowel Sounds; Negative Organomegaly
Rectal: Deferred by Provider
Musculoskeletal: No Clubbing, No Cyanosis and No Edema
Skin: Negative Rash
Neuro: Awake, Alert, Oriented, AO x 3, No Motor Deficits and Nonfocal/Grossly Intact
Psych: Calm
Data Reviewed
-
Total Time Spent with Patient (in minutes): 55
[2024-01-19 12:05] LABS: Glucose - Point of Care 194 mg/dl (70-99)
[2024-01-19] MEDS: MAGNESIUM SULFATE 50 IV (12:11)
[2024-01-19] MEDS: NORVASC 5 MG PO (12:11)
[2024-01-19] MEDS: SODIUM CHLORIDE 3% 250 IV ×2 (12:26→23:39)
[2024-01-19 12:42] LABS: Phosphorus 5.1 mg/dl (2.5-4.5)
--- NOTE | 2024-01-19 12:56 | PTCARENOTE ---
worked with PT, OOB again. Mag and 3% saline infusing separate sites. Ate lunch, family visiting
[2024-01-19 13:00] LABS: Uric Acid 3.8 mg/dl (2.5-6.2)
[2024-01-19] MEDS: NOVOLOG FLEXPEN-LOW RESISTANCE 1 UNITS SC ×2 (13:03→17:22)
[2024-01-19 15:24] LABS: Sodium 123 mmol/L (135-145)
--- NOTE | 2024-01-19 17:00 | PTCARENOTE ---
downgrade to IMU level, pt aware. less light sensitive, notes headache improved. family bedside. ambulates witih assist without diff and RW. 3% infusing. lab results to , next draw 1900.
[2024-01-19] MEDS: LOVENOX 40 MG SC (17:22)
[2024-01-19] MEDS: SENOKOT 8.59999999999999964 MG PO (17:22)
[2024-01-19 17:31] LABS: Glucose - Point of Care 151 mg/dl (70-99)
[2024-01-19 18:58] LABS: Sodium 122 mmol/L (135-145)
--- NOTE | 2024-01-19 19:11 | PTCARENOTE ---
mild edema R fingers distal to IV site, IV site without phlebitis or infiltrate, denies pain except where fingers are swollen. elevated on pillow. after lab draw, IV of 3% moved to LAC.
[2024-01-19] MEDS: COZAAR PO (20:19)
--- NOTE | 2024-01-19 20:19 | PTCARENOTE ---
patient received. oriented x3. c/o slight dull headache. states JOSEPH is much better than prior night. ice pack given. SR on monitor. RA, clear breath sounds, denies SOB. + bowel sounds. OOB with walker and assist to bathroom. patient repositioned in
bed. trending Na levels. staying at bedside overnight. IMU level of care. plan of care ongoing.
[2024-01-19] MEDS: LASIX 20 MG PO (21:22)
[2024-01-19 22:21] LABS: Glucose - Point of Care 179 mg/dl (70-99)
--- NOTE | 2024-01-19 23:07 | PTCARENOTE ---
patient reassessed. assessments unchanged. denies pain. OOB with assist x1 and rolling walker. Na and urine sent. plan of care ongoing.
[2024-01-19 23:14] LABS: Sodium 124 mmol/L (135-145)
--- NOTE | 2024-01-19 23:22 | PTCARENOTE ---
repeat [address] Ruiz, 3% NS is to be reordered at the same rate of 25ml if Na <125. ICU DIRECTOR OF USER EXPERIENCE notified to place orders.
[2024-01-19 23:32] LABS: Protein/creatinine Ratio 0.5; Urine Protein 12 mg/dl
[2024-01-19 23:33] LABS: Osmolality Urine 355 mOsm/kg (300-900)
[2024-01-19] MEDS: TYLENOL 650 MG PO (23:41)
[2024-01-20] VITALS (9 sets, daily range): BP systolic 104–136; BP diastolic 66–82; PULSE 105–120; BMI 21.5
--- NOTE | 2024-01-20 04:00 | PTCARENOTE ---
patient reassessed. assessments unchanged. phlebotomy contacted for AM labs. 3% NS remains infusing. pt denies JOSEPH at this time. plan of care ongoing.
[2024-01-20 06:19] LABS: % Basophils 0.1 % (0-2); % Eosinophils 1.9 % (0-6); % Immature Granulocytes 1.3 % (0-0.5); % Lymphocytes 24.6 % (20.5-51.1); % Monocytes 8.1 % (1.7-9.3); Absolute Eosinophils 0.2 10^3/uL (0-0.7); Absolute Immature Granulocytes 0.2 10^3/uL (0-0.05); Absolute Lymphocytes 2.9 10^3/uL (1.2-3.4); Absolute Neutrophils 7.6 10^3/uL (1.4-6.5); Hematocrit 22.4 % (37.0-47.0); Hemoglobin 7.7 g/dL (12.0-16.0); Mean Corp Hgb Conc. 34.4 g/dL (33.0-37.0); Mean Corpuscular Hgb 29.2 pg (27.0-31.0); Mean Corpuscular Volume 84.8 fL (81.0-99.0); Mean Platelet Volume 9.3 fL (7.4-10.4); Nucleated Red Blood Cells % 0 %; Platelet Count 552 10^3/uL (130-400); Red Blood Cell Count 2.64 10^6/uL (4.20-5.40); White Blood Cell Count 11.8 10^3/uL (4.8-10.8)
[2024-01-20 06:49] LABS: ALT (SGPT) 17 U/L (0-35); AST (SGOT) 18 U/L (14-36); Albumin 3.3 g/dl (3.5-5.0); Alkaline Phosphatase 54 U/L (38-126); Blood Urea Nitrogen 19 mg/dl (7-17); Calcium 9.4 mg/dl (8.4-10.2); Carbon Dioxide 28 mmol/L (22-30); Chloride 95 mmol/L (98-107); Estimated Creatinine Clearance 43 ml/min; Glucose 157 mg/dl (70-99); Magnesium 1.7 mg/dl (1.6-2.3); Sodium 130 mmol/L (135-145); Total Bilirubin 0.7 mg/dl (0.2-1.3); eGFR > 60.00
[2024-01-20 07:48] LABS: Glucose - Point of Care 165 mg/dl (70-99)
[2024-01-20] MEDS: NOVOLOG FLEXPEN-LOW RESISTANCE 1 UNITS SC ×3 (08:17→17:42)
[2024-01-20] MEDS: PEPCID 20 MG PO (08:18)
[2024-01-20] MEDS: ASPIR LOW (ENTERIC COATED) 81 MG PO (08:18)
[2024-01-20] MEDS: COZAAR 50 MG PO ×2 (08:18→21:03)
[2024-01-20] MEDS: VITAMIN D3 (cholecalciferol) 25 MCG PO (08:18)
--- NOTE | 2024-01-20 08:52 | W.PN.NEPH.PH ---
Today's Communication / Plan
-
daily orthostatics
Assessment/Plan
-
IMP:
Severe Symptomatic Hyponatremia
s/p Left TKA 01/09
GERD
Normocytic Anemia / Blood Loss Anemia
Benign Hypertension
DM-II
Hypomagnesemia
Plan:
-daily orthostatics
-may need permissive HTN
-lasix today
-serial BMP today
-no more 3% after current bag
-d/w pt and
-
-
Date of Service: January 20, 2024
CC / HPI / ROS
-
Chief Complaint:
hyponatremia
History of Present Illness:
Na up to 130 with lasix and 3%
BP stable
pain controlled
Review of Systems:
no CP/SOB
some orthostasis
Labs
-
Labs:
WBC 11.8 10^3/uL (4.8-10.8) H 01/20/24 05:50
RBC 2.64 10^6/uL (4.20-5.40) L 01/20/24 05:50
Hgb 7.7 g/dL (12.0-16.0) L 01/20/24 05:50
Hct 22.4 % (37.0-47.0) L 01/20/24 05:50
Plt Count 552 10^3/uL (130-400) H D 01/20/24 05:50
Sodium 130 mmol/L (135-145) L 01/20/24 05:50
Potassium 4.0 mmol/L (3.5-5.1) 01/20/24 05:50
Chloride 95 mmol/L (98-107) L 01/20/24 05:50
Carbon Dioxide 28 mmol/L (22-30) 01/20/24 05:50
BUN 19 mg/dl (7-17) H 01/20/24 05:50
Creatinine 0.7 mg/dL (0.6-1.0) 01/20/24 05:50
eGFR > 60.00 01/20/24 05:50
Glucose 157 mg/dl (70-99) H 01/20/24 05:50
Calcium 9.4 mg/dl (8.4-10.2) 01/20/24 05:50
Phosphorus 4.0 mg/dl (2.5-4.5) 01/20/24 05:50
Albumin 3.3 g/dl (3.5-5.0) L 01/20/24 05:50
Physical Exam
-
Vital Signs:
Vital Signs
Temp Pulse Resp BP Pulse Ox
97.8 F 109 21 135/79 98
01/20/24 08:11 01/20/24 06:00 01/20/24 06:00 01/20/24 04:15 01/20/24 05:10
Cardiovascular:: Regular rate and rhythm
Respiratory:: Bilateral: CTA
Lung Excursion:: Normal
Abdomen:: Nontender and Soft
Bowel Sounds:: Normal
Extremity Edema:: None: Bilateral:
[2024-01-20] MEDS: LASIX 20 MG PO (09:43)
--- NOTE | 2024-01-20 10:47 | PTCARENOTE ---
Pt offers no complaints. Ate 100% of breakfast. Ambulated in hallway with PT. Left knee dressing C/D/I.
--- NOTE | 2024-01-20 11:51 | PN.CDI ---
CDI
- -
CDI:
Physician Documentation Request
Admit Date: 01/18/24 23:11
Dear Doctor Usman,
Patient is status post L TKE (01/12/24)
H&P states 'Normocytic Anemia / Blood Loss Anemia'
Clarify which of the following accurately represents the acuity of the blood loss anemia
____ Acute
Chronic
____ Other
Use of terms such as suspected, likely, concern for, or probable (associated with a specific diagnosis that is being evaluated, monitored, or treated as if it exists) are acceptable and can be coded in the inpatient setting, when documented at the
time of discharge.
Thank you,
Bre Field RN, BSN
CDI Specialist
tiger text
Please use your independent medical judgment in providing your response.
[2024-01-20 11:53] LABS: Glucose - Point of Care 187 mg/dl (70-99)
--- NOTE | 2024-01-20 12:18 | W.PN.HOSP.TC ---
Today's Communication/Plan
-
trend bmp
lasix
monitor bp
bowel regimen
Assessment / Plan
Assessment / Plan
Acute symptomatic severe Hyponatremia
-s/p hypertonic saline
-Na improved to 130 now.
-started on lasix 20mg po daily.
-DC HCTZ indefinitely
-Hold Meloxicam
-nephro recs
Normocytic Anemia
-No prior labs for comparison, but suspect post-op subacute blood loss
-Monitor Hgb closely
Essential Hypertension
-Continue losartan and dose adjusted to twice daily
-HCTZ discontinued
-Norvasc 5 mg started
-May need to allow for mild permissive HTN
HypoMag
-replete
Lightheadness
-?due to decrease po intake, blood loss etc.
-check orthostatics
Diabetes Mellitus, Type II
-Hold metformin. A1C at 7
-Monitor sugars and continue coverage insulin
Recent Left Total Knee Replacement on Jan 12
-Consult PT/OT
-Continue Tylenol for pain
-Avoid NSAIDs
-Orthopedic following along. Aspirin for DVT prophylaxis
DVT proph: SCDs
Code Status: Full Code
Discussed with spouse at bedside in details
PT/OT-OP therapy
Anticipated Discharge: 24 - 48 hours
Subjective/Interval History
-
Date of Service: January 20, 2024
states of knee stiffness after working with PT
mild dizziness
Objective Data
-
Labs:
Laboratory Results
01/20/24 01/20/24
05:50 14:00
WBC 11.8 H
Hgb 7.7 L
Hct 22.4 L
Plt Count 552 H D
Sodium 130 L Pending
Potassium 4.0 Pending
Chloride 95 L Pending
Carbon Dioxide 28 Pending
BUN 19 H Pending
Creatinine 0.7 Pending
Glucose 157 H Pending
Calcium 9.4 Pending
Total Bilirubin 0.7
AST 18
ALT 17
Alkaline Phosphatase 54
Vital Signs:
Vital Signs
Temp Pulse Resp BP Pulse Ox
97.8 F 92 36 117/66 98
01/20/24 08:11 01/20/24 11:09 01/20/24 10:00 01/20/24 09:54 01/20/24 05:10
I&O
01/19/24 01/20/24 01/21/24
06:59 06:59 06:59
Intake Total 300 / 300 1120 / 1120 240 / 240
Output Total 500 / 500
Balance 300 / 300 620 / 620 240 / 240
Physical Exam
-
General: Well Developed and No Apparent Distress
HEENT: Normocephalic, Atraumatic and Moist Mucous Membranes
Respiratory: Clear to Auscultation
Cardiac: Regular Rhythm and S1/S2; Negative Murmur, Rub or Gallop
GI: Soft, Nontender, Nondistended and Normal Bowel Sounds; Negative Organomegaly
Rectal: Deferred by Provider
Musculoskeletal: No Clubbing, No Cyanosis and No Edema
Skin: Negative Rash
Neuro: Awake, Alert, Oriented, AO x 3, No Motor Deficits and Nonfocal/Grossly Intact
Psych: Calm
[2024-01-20] MEDS: TYLENOL 650 MG PO (12:27)
[2024-01-20] MEDS: MIRALAX 17 GRAMS PO (12:27)
--- NOTE | 2024-01-20 12:48 | PTCARENOTE ---
pt transferred to this afternoon via wheelchair. pt is aaox3 and just had L knee surgery 01/12. pt has hyponatremia with a level of 130 this AM and will be rechecked at 1400 this afternoon for her bmp. pt verbalized some knee discomfort so this
nurse gave prn tylenol. see MAR for appropriate charting. pt also stated feeling dizziness. MD made aware. pt placed on fall risk precautions and rings appropriately. pt VSS and this nurse went over interventions to prevent hyponatremia and acid
reflux at home with the patient and her family at the bedside who was asking for tips to prevent this in the future. pt is an accucheck for hx of diabetes and currently on a 1500 FR.
--- NOTE | 2024-01-20 13:45 | CM ---
CM following re: discharge planning.
Reviewed pt's chart, met with pt. Per Rounds meeting pt is downgraded from ICU level of care.
PT and OT evaluations noted - outpatient PT/OT recommended.
Please provide a script for outpatient PT/OT
D/C plan: return back home with resumptions of outpatient PT/OT at [facility].
CM will follow with discharge plan updates as hospitalization progresses
[2024-01-20 14:59] LABS: Blood Urea Nitrogen 21 mg/dl (7-17); Calcium 9.6 mg/dl (8.4-10.2); Carbon Dioxide 23 mmol/L (22-30); Chloride 95 mmol/L (98-107); Estimated Creatinine Clearance 33 ml/min; Glucose 253 mg/dl (70-99); Potassium 3.9 mmol/L (3.5-5.1); Sodium 128 mmol/L (135-145); eGFR > 60.00
[2024-01-20 17:02] LABS: Glucose - Point of Care 194 mg/dl (70-99)
[2024-01-20] MEDS: LOVENOX 40 MG SC (17:43)
[2024-01-20 21:26] LABS: Glucose - Point of Care 274 mg/dl (70-99)
[2024-01-21] MEDS: TYLENOL 650 MG PO ×4 (00:55→20:47)
[2024-01-21 06:00] VITALS: BMI 21.7
[2024-01-21 07:23] LABS: Glucose - Point of Care 165 mg/dl (70-99)
[2024-01-21 07:50] VITALS: BP 128/75; BP 137/72; BP 140/81; PULSE 75; PULSE 80; PULSE 95
[2024-01-21] MEDS: NOVOLOG FLEXPEN-LOW RESISTANCE 1 UNITS SC ×3 (07:52→17:50)
[2024-01-21 08:46] VITALS: BP 128/75; BP 137/72; BP 140/81; PULSE 75; PULSE 80; PULSE 95
[2024-01-21] MEDS: MIRALAX PO ×2 (08:49→08:54)
[2024-01-21] MEDS: LASIX 20 MG PO (08:50)
[2024-01-21] MEDS: PEPCID 20 MG PO ×2 (08:50→18:06)
[2024-01-21] MEDS: VITAMIN D3 (cholecalciferol) 25 MCG PO (08:50)
[2024-01-21] MEDS: ASPIR LOW (ENTERIC COATED) 81 MG PO (08:50)
[2024-01-21] MEDS: COZAAR 50 MG PO ×2 (08:50→20:36)
[2024-01-21 09:36] LABS: % Basophils 0.2 % (0-2); % Eosinophils 3.1 % (0-6); % Immature Granulocytes 1.4 % (0-0.5); % Lymphocytes 23.8 % (20.5-51.1); % Monocytes 8.5 % (1.7-9.3); Absolute Eosinophils 0.4 10^3/uL (0-0.7); Absolute Immature Granulocytes 0.2 10^3/uL (0-0.05); Absolute Lymphocytes 3.1 10^3/uL (1.2-3.4); Absolute Monocytes 1.1 10^3/uL (0.1-0.6); Absolute Neutrophils 8.2 10^3/uL (1.4-6.5); Hematocrit 23.9 % (37.0-47.0); Mean Corp Hgb Conc. 33.5 g/dL (33.0-37.0); Mean Corpuscular Hgb 29.4 pg (27.0-31.0); Mean Corpuscular Volume 87.9 fL (81.0-99.0); Mean Platelet Volume 9.4 fL (7.4-10.4); Nucleated Red Blood Cells % 0 %; Platelet Count 609 10^3/uL (130-400); Red Blood Cell Count 2.72 10^6/uL (4.20-5.40); Red Cell Dist. Width 14.7 % (11.5-14.5); White Blood Cell Count 13.1 10^3/uL (4.8-10.8)
--- NOTE | 2024-01-21 10:09 | PTCARENOTE ---
pt verbalizing L knee pain. given prn tylenol this AM see MAR for proper charting.
--- NOTE | 2024-01-21 10:12 | W.PN.NEPH.PH ---
Today's Communication / Plan
-
await BMP
Assessment/Plan
-
IMP:
Severe Symptomatic Hyponatremia
s/p Left TKA 01/09
GERD
Normocytic Anemia / Blood Loss Anemia
Benign Hypertension
DM-II
Hypomagnesemia
Plan:
-daily orthostatics
-allow permissive HTN
-lasix daily
-if Na stable could be dc from renal standpoint
-
-
Date of Service: January 21, 2024
CC / HPI / ROS
-
Chief Complaint:
hyponatremia
History of Present Illness:
Na up to 130 yesterday with lasix and 3%
labs pending this morning still
BP stable
pain controlled
Review of Systems:
no CP/SOB
no orthostasis
Labs
-
Labs:
WBC 13.1 10^3/uL (4.8-10.8) H 01/21/24 09:04
RBC 2.72 10^6/uL (4.20-5.40) L 01/21/24 09:04
Hgb 8.0 g/dL (12.0-16.0) L 01/21/24 09:04
Hct 23.9 % (37.0-47.0) L 01/21/24 09:04
Plt Count 609 10^3/uL (130-400) H 01/21/24 09:04
eGFR > 60.00 01/20/24 14:23
Phosphorus 4.0 mg/dl (2.5-4.5) 01/20/24 05:50
Albumin 3.3 g/dl (3.5-5.0) L 01/20/24 05:50
Physical Exam
-
Vital Signs:
Vital Signs
Temp Pulse Resp BP Pulse Ox
98.3 F 75 14 128/75 96
01/21/24 07:50 01/21/24 08:50 01/21/24 07:50 01/21/24 08:50 01/21/24 07:50
Cardiovascular:: Regular rate and rhythm
Respiratory:: Bilateral: Coarse
Lung Excursion:: Normal
Abdomen:: Nontender and Soft
Bowel Sounds:: Normal
Extremity Edema:: None: Bilateral:
--- NOTE | 2024-01-21 10:34 | W.PN.UPDATE ---
Update Note
Progress Note Update
Patient seen and evaluated this morning by orthopedic surgery. Patient is s/p left total knee replacement performed on 01/12/2024 under the direction of Dr. Cedeno. Patient admitted post-operatively due to severe symptomatic hyponatremia. Today, the
patient reports that she is feeling much better. Chemistry labs from this morning currently pending. Sodium level up to 130 as of 01/20/2024. Knee pain is well-controlled with Tylenol as needed. She is awake and alert lying in bed comfortably in no
acute distress. Left knee Mepilex dressing CDI. NVI distally.
73F 9 days s/p left TKA 01/12/24.
- Appreciate medical recommendations for hyponatremia.
- Pain control PRN.
- Discussed working on left knee ROM.
- Dressing to remain in place until 2 weeks post-op follow up.
- PT/OT as able given medical status, okay up out of bed. Patient worked with PT yesterday, reports that she did well.
- Continue ASA daily for DVT ppx.
--- NOTE | 2024-01-21 10:43 | W.PN.HOSP.TC ---
Today's Communication/Plan
-
await labs
tentative dc later today
lasix
Assessment / Plan
Assessment / Plan
Acute symptomatic severe Hyponatremia
-s/p hypertonic saline
-awaiting labs from today.
-started on lasix 20mg po daily.
-DC HCTZ indefinitely
-Hold Meloxicam
-nephro recs
Normocytic Anemia
-No prior labs for comparison, but suspect post-op subacute blood loss
-Monitor Hgb closely
Essential Hypertension
-Continue losartan and dose adjusted to twice daily
-HCTZ discontinued
-Norvasc 5 mg started
-May need to allow for mild permissive HTN
HypoMag
-replete
Lightheadness
-?due to decrease po intake, blood loss etc.
-check orthostatics -negative
-almost resolved.
Diabetes Mellitus, Type II
-Hold metformin. A1C at 7
-Monitor sugars and continue coverage insulin
Recent Left Total Knee Replacement on Jan 12
-Consult PT/OT
-Continue Tylenol for pain
-Avoid NSAIDs
-Orthopedic following along. Aspirin for DVT prophylaxis
DVT proph: SCDs/asa
Code Status: Full Code
Discussed with spouse at bedside in details on 01/19 and again on 01/20
PT/OT-OP therapy
Anticipated Discharge: Within 24 hours
Subjective/Interval History
-
Date of Service: January 21, 2024
states had bm yesterday
mild stiffness in knee
feeling alot better since admission
Objective Data
-
Labs:
Laboratory Results
01/21/24
09:04
WBC 13.1 H
Hgb 8.0 L
Hct 23.9 L
Plt Count 609 H
Sodium Pending
Potassium Pending
Chloride Pending
Carbon Dioxide Pending
BUN Pending
Creatinine Pending
Glucose Pending
Calcium Pending
Vital Signs:
Vital Signs
Temp Pulse Resp BP Pulse Ox
98.3 F 75 14 128/75 96
01/21/24 07:50 01/21/24 08:50 01/21/24 07:50 01/21/24 08:50 01/21/24 10:10
I&O
01/20/24 01/21/24 01/22/24
06:59 06:59 06:59
Intake Total 1120 / 1120 960 / 960
Output Total 500 / 500
Balance 620 / 620 960 / 960
Physical Exam
-
General: Well Developed and No Apparent Distress
HEENT: Normocephalic, Atraumatic and Moist Mucous Membranes
Respiratory: Clear to Auscultation
Cardiac: Regular Rhythm and S1/S2; Negative Murmur, Rub or Gallop
GI: Soft, Nontender, Nondistended and Normal Bowel Sounds; Negative Organomegaly
Rectal: Deferred by Provider
Musculoskeletal: No Clubbing, No Cyanosis, No Edema and Other (L knee with dressing )
Skin: Negative Rash
Neuro: Awake, Alert, Oriented, AO x 3, No Motor Deficits and Nonfocal/Grossly Intact
Psych: Calm
[2024-01-21 10:55] LABS: Blood Urea Nitrogen 20 mg/dl (7-17); Calcium 9.4 mg/dl (8.4-10.2); Carbon Dioxide 23 mmol/L (22-30); Chloride 94 mmol/L (98-107); Estimated Creatinine Clearance 43 ml/min; Glucose 219 mg/dl (70-99); Potassium 4.3 mmol/L (3.5-5.1); Sodium 125 mmol/L (135-145); eGFR > 60.00
[2024-01-21 12:38] LABS: Glucose - Point of Care 180 mg/dl (70-99)
--- NOTE | 2024-01-21 14:19 | PTCARENOTE ---
Pt verbalized intense episode of dizziness while sitting in the chair to the pct. vitals were taken and bp was 136/52 and a 80hr. made aware. PT to see her for vestibular therapy to r/o BPPV. Tabatha NOBLE ordered. pt sodium resulted as 125 for
morning bmp.
[2024-01-21] MEDS: SAMSCA 15 MG PO (14:44)
[2024-01-21 15:15] VITALS: BP 132/71
[2024-01-21 16:04] VITALS: BP 128/75; BP 137/72; BP 140/81; BP 145/83; PULSE 75; PULSE 80; PULSE 95; O2SAT 100
[2024-01-21 16:38] LABS: Glucose - Point of Care 189 mg/dl (70-99)
[2024-01-21] MEDS: LOVENOX 40 MG SC (17:49)
[2024-01-21 22:03] LABS: Glucose - Point of Care 212 mg/dl (70-99)
[2024-01-21 23:08] VITALS: BP 133/66
[2024-01-22 05:58] VITALS: BMI 21.1
[2024-01-22 07:23] LABS: Glucose - Point of Care 150 mg/dl (70-99)
[2024-01-22] MEDS: NOVOLOG FLEXPEN-LOW RESISTANCE SC (07:39)
[2024-01-22 08:14] VITALS: BP 109/75; BP 120/68; BP 132/74; PULSE 109; PULSE 83; PULSE 86
[2024-01-22 08:27] LABS: % Basophils 0.2 % (0-2); % Eosinophils 1.5 % (0-6); % Immature Granulocytes 0.9 % (0-0.5); % Neutrophils 77.4 % (42.2-75.2); Absolute Eosinophils 0.2 10^3/uL (0-0.7); Absolute Immature Granulocytes 0.1 10^3/uL (0-0.05); Absolute Monocytes 1.1 10^3/uL (0.1-0.6); Absolute Neutrophils 11.6 10^3/uL (1.4-6.5); Hematocrit 25.3 % (37.0-47.0); Hemoglobin 8.3 g/dL (12.0-16.0); Mean Corp Hgb Conc. 32.8 g/dL (33.0-37.0); Mean Corpuscular Volume 88.5 fL (81.0-99.0); Mean Platelet Volume 9.1 fL (7.4-10.4); Nucleated Red Blood Cells % 0 %; Platelet Count 667 10^3/uL (130-400); Red Blood Cell Count 2.86 10^6/uL (4.20-5.40)
[2024-01-22] MEDS: MIRALAX PO (08:32)
[2024-01-22] MEDS: PEPCID 20 MG PO (08:43)
[2024-01-22] MEDS: COZAAR 50 MG PO (08:43)
[2024-01-22] MEDS: LASIX 20 MG PO (08:43)
[2024-01-22] MEDS: VITAMIN D3 (cholecalciferol) 25 MCG PO (08:43)
[2024-01-22] MEDS: ASPIR LOW (ENTERIC COATED) 81 MG PO (08:43)
[2024-01-22 08:53] LABS: Blood Urea Nitrogen 21 mg/dl (7-17); Calcium 10.5 mg/dl (8.4-10.2); Carbon Dioxide 22 mmol/L (22-30); Chloride 97 mmol/L (98-107); Estimated Creatinine Clearance 38 ml/min; Glucose 275 mg/dl (70-99); Potassium 4.6 mmol/L (3.5-5.1); Sodium 131 mmol/L (135-145); eGFR > 60.00
--- NOTE | 2024-01-22 11:00 | W.PN.HOSP.TC ---
Today's Communication/Plan
-
Sodium tab
Lasix
norvasc stopped
OP bmp
Assessment / Plan
Assessment / Plan
Acute symptomatic severe Hyponatremia
-s/p hypertonic saline and samsca
-Na improved to 131. Monitor BMP.
-started on lasix 20mg po daily and NaCl 500mg BID
-DC HCTZ indefinitely
-Hold Meloxicam
-nephro recs
Leukocytosis likely reactive
-Dry cough. No productive sputum. No GI symptoms. No dysuria. No Gi symptoms.
-remains afebrile.
-wbc noted.
-No LE swelling.
-Check CXR.
-CXR 2d ago negative
-Left knee negative for swelling or erythema.
Normocytic Anemia
-No prior labs for comparison, but suspect post-op subacute blood loss
-Monitor Hgb closely. Stabilizing at 8.3.
Essential Hypertension
-Continue losartan and dose adjusted to twice daily
-HCTZ discontinued
-Norvasc 5 mg stopped
-May need to allow for mild permissive HTN
HypoMag
-replete
Lightheadedness
-?due to decrease po intake, blood loss etc.
-check orthostatics -negative
-resolved.
Diabetes Mellitus, Type II
-Hold metformin. A1C at 7
-Monitor sugars and continue coverage insulin
Recent Left Total Knee Replacement on Jan 12
-Consult PT/OT
-Continue Tylenol for pain
-Avoid NSAIDs
-Orthopedic following along. Aspirin for DVT prophylaxis
DVT proph: SCDs/asa
Code Status: Full Code
Discussed with spouse, son and daughter at bedside in details. Answered multiple questions to there satisfaction.
PT/OT-OP therapy
More than 30 minutes spent in discharge including
Final examination of the patient
Summarizing hospital stay
Instructions for continuing care to all relevant caregivers
Preparation of discharge records, prescriptions, and referral forms
Total time spent (in minutes): 40
Anticipated Discharge: Today
Subjective/Interval History
-
Date of Service: January 22, 2024
states of ongoing dry cough
no sputum
no dysuria or urgency
no diarrhea
no new rash
states dizziness resolved
Objective Data
-
Labs:
Laboratory Results
01/22/24
08:18
WBC 15.0 H
Hgb 8.3 L
Hct 25.3 L
Plt Count 667 H
Sodium 131 L
Potassium 4.6
Chloride 97 L
Carbon Dioxide 22
BUN 21 H
Creatinine 0.8
Glucose 275 H
Calcium 10.5 H
Vital Signs:
Vital Signs
Temp Pulse Resp BP Pulse Ox
97.6 F 86 16 132/74 98
01/22/24 08:14 01/22/24 08:14 01/22/24 08:14 01/22/24 08:43 01/22/24 10:46
I&O
01/21/24 01/22/24 01/23/24
06:59 06:59 06:59
Intake Total 960 / 960 1080 / 1080
Balance 960 / 960 1080 / 1080
Physical Exam
-
General: Well Developed and No Apparent Distress
HEENT: Normocephalic, Atraumatic and Moist Mucous Membranes
Respiratory: Clear to Auscultation
Cardiac: Regular Rhythm and S1/S2; Negative Murmur, Rub or Gallop
GI: Soft, Nontender, Nondistended and Normal Bowel Sounds; Negative Organomegaly
Rectal: Deferred by Provider
Musculoskeletal: No Clubbing, No Cyanosis, No Edema and Other (L knee with dressing )
Skin: Negative Rash
Neuro: Awake, Alert, Oriented, AO x 3, No Motor Deficits and Nonfocal/Grossly Intact
Psych: Calm
[2024-01-22 11:37] LABS: Glucose - Point of Care 182 mg/dl (70-99)
[2024-01-22] MEDS: NOVOLOG FLEXPEN-LOW RESISTANCE 1 UNITS SC (12:09)
--- NOTE | 2024-01-22 12:14 | W.PN.NEPH.PH ---
Today's Communication / Plan
-
nacl
Assessment/Plan
-
IMP:
Severe Symptomatic Hyponatremia
s/p Left TKA 01/09
GERD
Normocytic Anemia / Blood Loss Anemia
Benign Hypertension
DM-II
Hypomagnesemia
Plan:
-daily orthostatics
-allow permissive HTN
-lasix daily
-start NaCl 500mg po BID.
-BMP later this week
-dc planning
-
-
Date of Service: January 22, 2024
CC / HPI / ROS
-
Chief Complaint:
hyponatremia
History of Present Illness:
Na up to 131 with samsca
BP stable
pain controlled
Review of Systems:
no CP/SOB
no orthostasis
Labs
-
Labs:
WBC 15.0 10^3/uL (4.8-10.8) H 01/22/24 08:18
RBC 2.86 10^6/uL (4.20-5.40) L 01/22/24 08:18
Hgb 8.3 g/dL (12.0-16.0) L 01/22/24 08:18
Hct 25.3 % (37.0-47.0) L 01/22/24 08:18
Plt Count 667 10^3/uL (130-400) H 01/22/24 08:18
Sodium 131 mmol/L (135-145) L 01/22/24 08:18
Potassium 4.6 mmol/L (3.5-5.1) 01/22/24 08:18
Chloride 97 mmol/L (98-107) L 01/22/24 08:18
Carbon Dioxide 22 mmol/L (22-30) 01/22/24 08:18
BUN 21 mg/dl (7-17) H 01/22/24 08:18
Creatinine 0.8 mg/dL (0.6-1.0) 01/22/24 08:18
eGFR > 60.00 01/22/24 08:18
Glucose 275 mg/dl (70-99) H 01/22/24 08:18
Calcium 10.5 mg/dl (8.4-10.2) H 01/22/24 08:18
Phosphorus 4.0 mg/dl (2.5-4.5) 01/20/24 05:50
Albumin 3.3 g/dl (3.5-5.0) L 01/20/24 05:50
Physical Exam
-
Vital Signs:
Vital Signs
Temp Pulse Resp BP Pulse Ox
97.6 F 86 16 132/74 98
01/22/24 08:14 01/22/24 08:14 01/22/24 08:14 01/22/24 08:43 01/22/24 10:46
Cardiovascular:: Regular rate and rhythm
Respiratory:: Bilateral: Coarse
Lung Excursion:: Normal
Abdomen:: Nontender and Soft
Bowel Sounds:: Normal
Extremity Edema:: None: Bilateral:
[2024-01-22] MEDS: SODIUM CHLORIDE 0.5 GRAM PO (12:33)
--- NOTE | 2024-01-22 14:14 | W.DCSUMMARY ---
Discharge Summary
Discharge Data
Date of Admission: 01/18/24
Date of Discharge: 01/22/24
-
Pending Results: No
Hospital Course
73 yo female past medical history of hypertension, hyperlipidemia, diabetes, recent left knee replacement, anemia who was presented with weakness. Patient was found to have severe hyponatremia on admission. Patient was admitted to medical ICU.
Patient received hypertonic saline. Patient with episode of increasing sodium withdrawal. Patient also received Samsca. Patient was started on Lasix. Patient with dizziness. Hydrochlorothiazide was discontinued. Losartan was increased to 50 mg
twice daily D. Norvasc was initially started however was eventually stopped due to symptomatic dizziness. Dizziness resolved with mild permissive hypertension. Patient was eval by physical and Occupational Therapy. Patient will continue on baby
aspirin for DVT prophylaxis per orthopedics. Patient sodium on the day of discharge was 131. Patient was started on sodium tablets and Lasix. Patient also with mild leukocytosis. Patient came in with WBC count 15.8. Patient with dry cough. No
GI symptoms. No symptoms. Patient remained afebrile throughout hospitalization. No upper or lower extremity swelling. No rash. Patient will be recommended to repeat CBC and BMP in 1 week with primary doctors.
Discharge Plan
-
Patient Disposition: Home (Routine Discharge)
Discharge Diagnosis/Procedures: Acute symptomatic severe Hyponatremia
Leukocytosis
Anemia
Hypomagnesemia
Condition: Fair
Diet: As tolerated
Activity: With assistance and As tolerated
Blood Work: Recommend CBC and BMP in 1 week via primary doctor.
Other Services: VN
Stop these medications:: Hydrochlorothiazide was stopped
Referrals:
Salbador Cedeno MD [Active] - (F/U as scheduled with Orthopedics for 1st PO visit on 01/27/2024 @ 1:15 PM)
Isabela Lazaro MD [Family Provider] - in less than 1 week
Prescriptions:
New
losartan 50 mg Tablet
50 mg PO BID 30 Days Qty: 60 0RF
furosemide 20 mg Tablet
20 mg PO DAILY 20 Days Qty: 20 0RF
sodium chloride 1,000 mg Tablet,Soluble
500 mg PO BID 30 Days Qty: 30 0RF
Continued
sennosides [senna] 8.6 mg Tablet
8.6 mg PO BIDPRN PRN (Reason: constipation-if bm aftr miralax)
acetaminophen [Tylenol] 325 mg Tablet
650 mg PO Q4HPRN PRN (Reason: mild pain)
polyethylene glycol 3350 [Miralax] 17 gram Powder In Packet
17 g PO DAILYPRN PRN (Reason: constipation)
aspirin 81 mg Tablet,Delayed Release (Dr/Ec)
81 mg PO DAILY
famotidine [Pepcid] 20 mg Tablet
20 mg PO DAILY
metformin 1,000 mg Tablet
1,000 mg PO BID
bisacodyl [Dulcolax (bisacodyl)] 5 mg Tablet,Delayed Release (Dr/Ec)
10 mg PO DAILYPRN PRN (Reason: constipation)
simethicone 80 mg Tablet,Chewable
80 mg PO TIDPRN PRN (Reason: gas pains)
cholecalciferol (vitamin D3) [Vitamin D3] 25 mcg (1,000 unit) Tablet
25 mcg PO DAILY
Lipitor
1 tab PO DAILY
Patient Comments:
no record at pharamcy or ecw or dose or directions
Discontinued
losartan-hydrochlorothiazide 50-12.5 mg Tablet
1 tab PO BID
meloxicam 7.5 mg Tablet
7.5 mg PO DAILY
Discharge Orders:
Discharge Patient (As Directed); Ordered 01/22/24
Ordered By: Varinder Mary
--- NOTE | 2024-01-22 14:32 | CM ---
CM reviewed chart and noted dc order
Bedside meeting with pt
No dc needs noted
No new Rx is needed for ROSAL[facility] outpt therapy
IMM verbally reviewed- copy provided
Discharge Disposition- home no needs
== END 2024-01-22 15:38 | disposition home or self-care (01) | DRG 641 ==
LOC: 2 NORTH 23:11
PROVIDERS: Nurse Practitioner Family; Physician Assistant Medical; Specialist; Student in an Organized Health Care Education/Training Program; ADMITTING PHYSICIAN Hospitalist; ATTENDING PHYSICIAN Hospitalist; CONSULT PHYSICIAN Internal Medicine; CONSULT PHYSICIAN Internal Medicine Critical Care Medicine; CONSULT PHYSICIAN Specialist; EMERGENCY PHYSICIAN Emergency Medicine; FAMILY PHYSICIAN Internal Medicine
DX: E87.1 Hypo-osmolality and hyponatremia (principal); I10 Essential (primary) hypertension; E78.5 Hyperlipidemia, unspecified; E11.9 Type 2 diabetes mellitus without complications; M25.562 Pain in left knee; D72.829 Elevated white blood cell count, unspecified; E83.42 Hypomagnesemia; Z79.84 Long term (current) use of oral hypoglycemic drugs; Z96.652 Presence of left artificial knee joint; Z79.82 Long term (current) use of aspirin
CPT/HCPCS: 70450; 71045; 71046; 80048; 80053; 82533; 82570; 82607; 82728; 82746; 82962; 83036; 83540; 83550; 83735; 83935; 84100; 84156; 84295; 84300; 84439; 84443; 84484; 84550; 85025; 85027; 85610; 85730; 93005; 96374; 97110; 97116; 97162; 97166; 97530; 99284

== ENCOUNTER 2024-01-24 17:46 | Emergency (ER) | payer MEDICARE, SELFPAY ==
[2024-01-24 17:49] VITALS: BP 165/95
[2024-01-24 18:03] LABS: % Basophils 0.2 % (0-2); % Eosinophils 1.2 % (0-6); % Immature Granulocytes 0.4 % (0-0.5); % Monocytes 7.2 % (1.7-9.3); Absolute Eosinophils 0.2 10^3/uL (0-0.7); Absolute Immature Granulocytes 0.1 10^3/uL (0-0.05); Absolute Lymphocytes 2.4 10^3/uL (1.2-3.4); Absolute Monocytes 0.9 10^3/uL (0.1-0.6); Hematocrit 22.1 % (37.0-47.0); Hemoglobin 7.2 g/dL (12.0-16.0); Mean Corp Hgb Conc. 32.6 g/dL (33.0-37.0); Mean Corpuscular Hgb 29.5 pg (27.0-31.0); Mean Corpuscular Volume 90.6 fL (81.0-99.0); Mean Platelet Volume 8.9 fL (7.4-10.4); Nucleated Red Blood Cells % 0 %; Platelet Count 545 10^3/uL (130-400); Red Blood Cell Count 2.44 10^6/uL (4.20-5.40); Red Cell Dist. Width 15.4 % (11.5-14.5); White Blood Cell Count 12.4 10^3/uL (4.8-10.8)
[2024-01-24 18:17] LABS: ALT (SGPT) 25 U/L (0-35); AST (SGOT) 25 U/L (14-36); Albumin 4.1 g/dl (3.5-5.0); Alkaline Phosphatase 56 U/L (38-126); Blood Urea Nitrogen 12 mg/dl (7-17); Calcium 9.4 mg/dl (8.4-10.2); Carbon Dioxide 22 mmol/L (22-30); Chloride 100 mmol/L (98-107); Glucose 258 mg/dl (70-99); Potassium 4.2 mmol/L (3.5-5.1); Sodium 134 mmol/L (135-145); Total Bilirubin 0.5 mg/dl (0.2-1.3); Total Protein 6.6 g/dl (6.3-8.2); eGFR > 60.00
[2024-01-24 18:58] VITALS: BP 167/85
[2024-01-24 19:00] VITALS: BP 174/86
[2024-01-24 20:00] VITALS: BP 125/104
--- NOTE | 2024-01-24 20:12 | ED.GENMED ---
History of Present Illness
General
Chief Complaint: Abnormal Lab Value
Source: patient and family
Exam Limitations: none
Time Seen by Provider: 01/24/24 18:41
Travel History
Have you had any contact with someone who has COVID-19?: No
Do you have any symptoms of coronavirus? Fever > 100 degrees, chills, cough, shortness of breath, sore throat, loss of taste or smell, muscle aches, or headache?: No
History of Present Illness
History of Present Illness:
Patient is a 73-year-old female with past medical history of hypertension, hyperlipidemia, diabetes, recent left knee replacement, anemia, who presents to the emergency department for further evaluation of a low hemoglobin on outpatient labs
performed yesterday by her PCP. Patient reports she was discharged from this hospital 2 days ago. Patient had been admitted to the ICU as she was found to have severe hyponatremia with a sodium of 118. Patient was treated and her sodium improved
along with her symptoms. Patient followed up with her primary care provider yesterday and they recommended rechecking labs. Patient received a phone call today that her hemoglobin was 7.7 and that she needed to come to the emergency department for
a possible blood transfusion. Patient reports that she has been feeling fatigued but attributed it to her recent surgery and hospitalization. Patient denies that she has been bleeding from anywhere. Patient denies any vaginal bleeding, denies any
hematuria. Patient denies any vomiting of blood, denies any rectal bleeding, denies any dark or tarry stools. Patient denies history of anemia in the past and denies that she has ever needed a blood transfusion previously. Patient denies any
chest pain or shortness of breath.
Past History
Past History
ED Past Medical History: HTN, Hypercholesterolemia, NIDDM and Other (anemia)
ED Past Surgical History: Orthopedic (Left knee TKA)
Social History
Tobacco: Non-smoker
Alcohol: None
Drug: None
Living: with family
Review of Systems
Review of Systems
Allergies reviewed?: Yes
All Other Systems: Not applicable
Constitutional: Reports fatigue; Denies fever
EENT: Reports no symptoms
Respiratory: Reports no symptoms
Cardiac: Reports no symptoms
ABD/GI: Reports no symptoms
: Reports no symptoms
Musculoskeletal: Reports no symptoms
Skin: Reports no symptoms
Neurological: Reports no symptoms
Endocrine: Reports no symptoms
Hematologic/Lymphatic: Reports no symptoms
Psychiatric: Reports no symptoms
Phy Exam
General Physical Exam
General Presentation: well appearing and no apparent distress
General Skin: warm and dry
General Habitus: normal
General Mental: alert
General Hydration: appears well hydrated
ENT Exam
ENT Exam: EOMI, pharynx normal, neck supple and normocephalic
Eye Exam
Eye Exam: PERRL, cornea clear and conjunctiva normal
Cardiovascular Exam
Cardiovascular Exam: regular rate/rhythm, no edema, no murmur and normal peripheral pulses
Pulmonary Exam
Pulmonary Exam: lungs clear, no respiratory distress, no rales, no crackles, no rhonchi, no stridor, no wheezing and no cough
Gastrointestinal Exam
Gastrointestinal Exam: normal bowel sounds, non tender, soft, no organomegaly, no pulsatile mass, non distended and other (rectal exam chaperoned by the patient's nurse, no external hemorrhoids or fissured, digital rectal exam reveals brown stool
which is heme occult negative)
Neurological Exam
Neurological Exam: alert, oriented x3, no motor deficits and speech normal
Musculoskeletal Exam
Musculoskeletal Exam: other (bandage over the left knee, there is no surrounding swelling or erythema, there is some ecchymosis to the LLE which pt reports has been improving since surgery, the entire leg has soft compartments)
Skin Exam
Skin Exam: normal color, warm/dry, no rash and no petechia
Psychiatric Exam
Psychiatric Exam: normal mood/affect
Course
Orders/Labs/Results
Orders:
Orders
01/24/24 17:56
Type+Screen Urgent
Complete Blood Count/With Diff Urgent
Comprehensive Metabolic Panel Urgent
Abnormal Lab Results
01/24/24
17:56
WBC 12.4 H 10^3/uL
(4.8-10.8)
RBC 2.44 L 10^6/uL
(4.20-5.40)
Hgb 7.2 L g/dL
(12.0-16.0)
Hct 22.1 L %
(37.0-47.0)
MCHC 32.6 L g/dL
(33.0-37.0)
RDW 15.4 H %
(11.5-14.5)
Plt Count 545 H 10^3/uL
(130-400)
Abs Immat Gran (auto) 0.1 H 10^3/uL
(0-0.05)
Absolute Neuts (auto) 9.0 H 10^3/uL
(1.4-6.5)
Absolute Monos (auto) 0.9 H 10^3/uL
(0.1-0.6)
Lymphocytes % 19.0 L %
(20.5-51.1)
Sodium 134 L mmol/L
(135-145)
Creatinine 0.5 L mg/dL
(0.6-1.0)
Glucose 258 H mg/dl
(70-99)
01/24/24 17:56
01/24/24 17:56
Vital Signs
Initial and Last Documented VS:
Initial Vital Signs
Temp Pulse Resp BP Pulse Ox
97.2 F 109 16 165/95 99
01/24/24 17:49 01/24/24 17:49 01/24/24 17:49 01/24/24 17:49 01/24/24 17:49
Last Documented Vital Signs
Temp Pulse Resp BP Pulse Ox
97.2 F 82 20 125/104 100
01/24/24 17:49 01/24/24 20:00 01/24/24 20:00 01/24/24 20:00 01/24/24 20:00
*Critical Care Note
Total Time (30-74mins, 75-104mins- exclusive of procedures): Not Applicable
Update Note
Update Note:
73-year-old female presents with low hemoglobin on outpatient labs performed by her PCP yesterday. Patient endorses some fatigue but denies any other symptoms. Patient denies any bleeding from anywhere. On arrival, patient is moderately
hypertensive, mildly tachycardic to 109 bpm although this improved without intervention during the patient's emergency department stay, she is afebrile. On exam, patient is very well-appearing, she is in no acute distress, she has a normal
cardiopulmonary exam, she has a benign abdomen, she has brown heme-negative stool. Labs were obtained and demonstrated a hemoglobin of 7.2 here today, the remainder of the patient's labs are nonactionable. Case discussed with ED attending who
agrees that benefits of blood transfusion likely do not outweigh risks at this time. I spoke with the patient and her son, patient would prefer to avoid blood transfusion if at all possible. Given the patient is not actively bleeding and is
asymptomatic, will not transfuse today. Do not feel that patient warrants admission to the hospital at this time however I advised the patient and her son the patient should have a repeat hemoglobin check in 1 to 2 days. Patient and her son were
also given strict return precautions, they expressed understanding of the plan and agreed.
ED Attending Note
-
Portions of this chart may have been created with voice recognition software.� Occasional wrong word or��sound alike� substitutions may have occurred due to the inherent limitations of voice recognition software.
Discharge Plan
Departure
Patient Disposition: Home (Routine Discharge)
Date of Disposition: 01/24/24
Time of Disposition: 19:48
Patient with high blood pressure during this ER visit?: Yes
Condition: Good
Covid-19: Not Applicable
Discharge Problem:
Anemia
Instructions: Normocytic Normochromic Anemia (DC)
Prescriptions:
No Action
sennosides [senna] 8.6 mg Tablet
8.6 mg PO BIDPRN PRN (Reason: constipation-if bm aftr miralax)
acetaminophen [Tylenol] 325 mg Tablet
650 mg PO Q4HPRN PRN (Reason: mild pain)
polyethylene glycol 3350 [Miralax] 17 gram Powder In Packet
17 g PO DAILYPRN PRN (Reason: constipation)
aspirin 81 mg Tablet,Delayed Release (Dr/Ec)
81 mg PO DAILY
famotidine [Pepcid] 20 mg Tablet
20 mg PO DAILY
metformin 1,000 mg Tablet
1,000 mg PO BID
simethicone 80 mg Tablet,Chewable
80 mg PO TIDPRN PRN (Reason: gas pains)
cholecalciferol (vitamin D3) [Vitamin D3] 25 mcg (1,000 unit) Tablet
25 mcg PO DAILY
Lipitor
1 tab PO DAILY
Patient Comments:
01/24/24-no record at pharamcy or ecw or dose or directions
losartan 50 mg Tablet
50 mg PO BID 30 Days Qty: 60 0RF
furosemide 20 mg Tablet
20 mg PO DAILY 20 Days Qty: 20 0RF
sodium chloride 1,000 mg Tablet,Soluble
500 mg PO BID 30 Days Qty: 30 0RF
Referrals:
Follow up, with your PCP [Other] (Follow up in 1-2 days for a recheck of your hemoglobin)
Activity Restrictions/Additional Instructions:
You were seen in the emergency department for evaluation of a low hemoglobin. Your hemoglobin today was 7.4. We did not feel that the benefits of giving you a blood transfusion today outweigh the risks. We feel that you are safe for discharge to
home, but recommend that you follow-up with your PCP for a repeat check of your hemoglobin in 24-48 hours. Please return to the emergency department if you pass out or feel like you are going to pass out, if you experience chest pain, shortness of
breath, if you notice bleeding from anywhere, if you have dark or tarry stools, or for any other worsening or concerning symptoms.
Interventions
Interventions:
*Risk Screen - Suicide Last Done: 01/24/24 19:07
*General Assessment Last Done: 01/24/24 17:49
*Neglect/Abuse Screening Last Done: 01/24/24 19:07
ED- Fall Risk Assessment Last Done: 01/24/24 19:07
*ED COVID-19 Vaccine History Last Done: 01/24/24 17:49
*Nursing Disposition Last Done: 01/24/24 20:10
Discharge Date and Time
Discharge Date/Time: 01/24/24 20:11
== END 2024-01-24 20:11 | disposition home or self-care (01) ==
LOC: EMR 17:46
PROVIDERS: Emergency Medicine; EMERGENCY PHYSICIAN Emergency Medicine
DX: D64.9 Anemia, unspecified (principal); E78.00 Pure hypercholesterolemia, unspecified; E11.9 Type 2 diabetes mellitus without complications; E87.1 Hypo-osmolality and hyponatremia; I10 Essential (primary) hypertension; Z96.652 Presence of left artificial knee joint
CPT/HCPCS: 99283; 80053; 85025; 86850; 86900; 86901

== ENCOUNTER 2024-01-29 17:35 | Inpatient (IN) | payer MEDICARE, SELFPAY ==
[2024-01-29 12:56] VITALS: BP 143/92; BMI 21.7
--- NOTE | 2024-01-29 13:17 | ED.GENMED ---
History of Present Illness
General
Chief Complaint: Abnormal Lab Value
Source: patient
Exam Limitations: none
Time Seen by Provider: 01/29/24 13:13
Travel History
Have you had any contact with someone who has COVID-19?: No
Do you have any symptoms of coronavirus? Fever > 100 degrees, chills, cough, shortness of breath, sore throat, loss of taste or smell, muscle aches, or headache?: No
History of Present Illness
History of Present Illness:
See MDM
Past History
Past History
ED Past Medical History: HTN, Hypercholesterolemia, NIDDM and Other (anemia)
ED Past Surgical History: Orthopedic (Left knee TKA)
Social History
Tobacco: Non-smoker
Alcohol: None
Drug: None
Living: with family
Phy Exam
Physical Exam
Physical Exam:
See MDM
Course
Orders/Labs/Results
Orders:
Orders
01/29/24 13:00
Electrocardiogram (*1) Urgent
Reason for Study: Chest Pain
EKG- Treatment ONCE
01/29/24 13:31
Complete Blood Count/With Diff Urgent
Comprehensive Metabolic Panel Urgent
Magnesium Urgent
UA [Urinalysis] Urgent
Date Specimen was Collected: 01/29/24
Time Specimen was Collected: 13:00
Urine Microscopic Urgent
Date Specimen was Collected: 01/29/24
Time Specimen was Collected: 13:00
01/29/24 14:36
0.9% Sodium Chloride 1000 ml [Nss] 1,000 ml IV BOLUS
Ketorolac [Toradol] 30 mg IV NOW STA
Magnesium Sulfate 2 Gram/50 ml [Magnesium Sulfate] 2 gram in 50 ml IV NOW
Ondansetron Injectable [Zofran] 4 mg IV NOW STA
01/29/24 15:59
Famotidine [Pepcid] 20 mg IV NOW STA
Iohexol [Omnipaque] See Protocol PO NOW STA
NSS 1000mL Bolus over 1 hr 0.9% Sodium Chloride 1000 ml [Nss] 1,000 ml IV BOLUS
01/29/24 16:00
CT Abd/pel W Iv And Oral Contr Urgent
Comment:
Reason For Exam: Upper abd pain
Abnormal Lab Results
01/29/24
13:31
RBC 2.93 L 10^6/uL
(4.20-5.40)
Hgb 8.6 L g/dL
(12.0-16.0)
Hct 26.1 L %
(37.0-47.0)
RDW 16.3 H %
(11.5-14.5)
Plt Count 537 H 10^3/uL
(130-400)
Abs Immat Gran (auto) 0.1 H 10^3/uL
(0-0.05)
Absolute Neuts (auto) 8.0 H 10^3/uL
(1.4-6.5)
Neutrophils % 80.4 H %
(42.2-75.2)
Lymphocytes % 12.5 L %
(20.5-51.1)
Sodium 129 L mmol/L
(135-145)
Glucose 118 H mg/dl
(70-99)
Calcium 10.4 H mg/dl
(8.4-10.2)
Magnesium 1.5 L mg/dl
(1.6-2.3)
Ur Leukocyte Esterase Trace A
(Negative)
Urine RBC 7-10 A /HPF
(0-2)
Urine Bacteria Few A
(Negative)
01/29/24 13:31
01/29/24 13:31
Vital Signs
Initial and Last Documented VS:
Initial Vital Signs
Temp Pulse Resp BP Pulse Ox
97.6 F 116 20 143/92 100
01/29/24 12:56 01/29/24 12:56 01/29/24 12:56 01/29/24 12:56 01/29/24 12:56
Last Documented Vital Signs
Temp Pulse Resp BP Pulse Ox
97.6 F 116 20 143/92 100
01/29/24 12:56 01/29/24 12:56 01/29/24 12:56 01/29/24 12:56 01/29/24 12:56
MDM/Problems Addressed
Differential Diagnosis Includes:
HPI and MDM Narrative:
73-year-old female presenting for evaluation of generalized weakness and fatigue. Patient states this is similar presentation when she was diagnosed with low sodium levels. She states symptoms have been ongoing for the past 5 days or so. Patient
denies fevers.
Given her history, will obtain basic blood work and urinalysis
Physical exam
General: Well appearing and non-toxic
HEENT: protecting airway
Neck: appears supple
CV: No evidence of cyanosis
Resp: No accessory muscle use
Abd: Non-distended and nontender
Extremities: Left knee postsurgical incision is healed
Neuro: alert
Psych: Normal affect
Skin: Intact
Problems Addressed including Acute and Chronic Conditions affecting care:
1. General weakness
Acuity: acute
Prognosis: stable
Details: Given her history, will obtain basic blood work and urinalysis
2. Hyponatremia
Acuity: acute
Prognosis: stable
Details: Will give IV fluids
3. Hypomagnesemia
Acuity: acute
Prognosis: stable
Details: Will give IV magnesium
Updates
Patient found to be mildly hyponatremic. Patient also hypomagnesemia. Will replete
After IV fluids, patient still weak and fatigued. Patient now complaining of worsening abdominal pain. Will obtain CT and admit for symptomatic hyponatremia
Differential Diagnosis (but not limited to): Hyponatremia, UTI
Testing considered: EKG
Drug therapy (if applicable): OTC meds, please see d/c instruction regarding Rx drugs
Amount and/or Complexity of Data Reviewed
Clinical info obtained from: Patient
External data reviewed: N/A
Labs I independently reviewed (but not limited to): Sodium and magnesium low
Radiology: N/A
Pulse Ox: not hypoxic
EKG independently reviewed: N/A
Staffing Clerk: N/A
Critical Care: N/A
Risk of Complication:
Social Determinants of health: Good social support
Discussed with other providers: Hospitalist
Escalation of Care includes Admit/Obs: Given the symptomatic hyponatremia, will admit
Occasional wrong word or 'sound a like' substitutions may have occurred due to the inherent limitations of voice recognition software. Read the chart carefully and recognize, using context, where substitutions have occurred.
*Critical Care Note
Total Time (30-74mins, 75-104mins- exclusive of procedures): Not Applicable
ED Attending Note
-
Portions of this chart may have been created with voice recognition software.� Occasional wrong word or��sound alike� substitutions may have occurred due to the inherent limitations of voice recognition software.
Discharge Plan
Departure
Patient Disposition: Admit
Date of Disposition: 01/29/24
Time of Disposition: 16:02
Admit to: Med/Surg
Presentation/result/management discussed w/ accepting MD/DO: Hospitalist
Discharge Problem:
Acute hyponatremia, Hypomagnesemia
Prescriptions:
No Action
sennosides [senna] 8.6 mg Tablet
8.6 mg PO BIDPRN PRN (Reason: constipation-if bm aftr miralax)
acetaminophen [Tylenol] 325 mg Tablet
650 mg PO Q4HPRN PRN (Reason: mild pain)
polyethylene glycol 3350 [Miralax] 17 gram Powder In Packet
17 g PO DAILYPRN PRN (Reason: constipation)
aspirin 81 mg Tablet,Delayed Release (Dr/Ec)
81 mg PO DAILY
famotidine [Pepcid] 20 mg Tablet
20 mg PO DAILY
metformin 1,000 mg Tablet
1,000 mg PO BID
simethicone 80 mg Tablet,Chewable
80 mg PO TIDPRN PRN (Reason: gas pains)
cholecalciferol (vitamin D3) [Vitamin D3] 25 mcg (1,000 unit) Tablet
25 mcg PO DAILY
Lipitor
1 tab PO DAILY
Patient Comments:
01/24/24-no record at pharamcy or ecw or dose or directions
losartan 50 mg Tablet
50 mg PO BID 30 Days Qty: 60 0RF
furosemide 20 mg Tablet
20 mg PO DAILY 20 Days Qty: 20 0RF
sodium chloride 1,000 mg Tablet,Soluble
500 mg PO BID 30 Days Qty: 30 0RF
Referrals:
Isabela Lazaro MD [Family Provider] -
Interventions
Interventions:
*Risk Screen - Suicide Last Done: 01/29/24 12:56
*Neglect/Abuse Screening Last Done: 01/29/24 12:56
*ED COVID-19 Vaccine History Last Done: 01/29/24 12:56
[2024-01-29 13:43] LABS: % Basophils 0.2 % (0-2); % Eosinophils 1.1 % (0-6); % Immature Granulocytes 0.5 % (0-0.5); % Lymphocytes 12.5 % (20.5-51.1); % Monocytes 5.3 % (1.7-9.3); % Neutrophils 80.4 % (42.2-75.2); Absolute Eosinophils 0.1 10^3/uL (0-0.7); Absolute Immature Granulocytes 0.1 10^3/uL (0-0.05); Absolute Lymphocytes 1.2 10^3/uL (1.2-3.4); Absolute Monocytes 0.5 10^3/uL (0.1-0.6); Hematocrit 26.1 % (37.0-47.0); Hemoglobin 8.6 g/dL (12.0-16.0); Mean Corpuscular Hgb 29.4 pg (27.0-31.0); Mean Corpuscular Volume 89.1 fL (81.0-99.0); Mean Platelet Volume 8.9 fL (7.4-10.4); Nucleated Red Blood Cells % 0 %; Platelet Count 537 10^3/uL (130-400); Red Blood Cell Count 2.93 10^6/uL (4.20-5.40); Red Cell Dist. Width 16.3 % (11.5-14.5); White Blood Cell Count 9.9 10^3/uL (4.8-10.8)
[2024-01-29 13:53] LABS: Urine Albumin Trace (Neg - Trace); Urine Bilirubin Negative (Negative); Urine Character Clear (Clear); Urine Color Yellow; Urine Glucose Negative (Negative); Urine Ketone Negative (Negative); Urine Leukocyte Trace (Negative); Urine Nitrite Negative (Negative); Urine Occult Blood Negative (Negative); Urine Urobilinogen Negative (Neg - 1+)
[2024-01-29 13:55] LABS: ALT (SGPT) 19 U/L (0-35); AST (SGOT) 26 U/L (14-36); Albumin 4.2 g/dl (3.5-5.0); Alkaline Phosphatase 75 U/L (38-126); Blood Urea Nitrogen 13 mg/dl (7-17); Calcium 10.4 mg/dl (8.4-10.2); Carbon Dioxide 22 mmol/L (22-30); Chloride 98 mmol/L (98-107); Estimated Creatinine Clearance 50 ml/min; Glucose 118 mg/dl (70-99); Magnesium 1.5 mg/dl (1.6-2.3); Potassium 4.8 mmol/L (3.5-5.1); Sodium 129 mmol/L (135-145); Total Bilirubin 0.5 mg/dl (0.2-1.3); Total Protein 6.9 g/dl (6.3-8.2); eGFR > 60.00
[2024-01-29 14:42] LABS: Urine Bacteria Few (Negative)
[2024-01-29] MEDS: MAGNESIUM SULFATE 50 IV (14:47)
[2024-01-29] MEDS: ZOFRAN 4 MG IV (14:48)
[2024-01-29] MEDS: NSS 1000 IV ×3 (14:48→20:46)
[2024-01-29] MEDS: TORADOL 30 MG IV (14:49)
[2024-01-29] MEDS: PEPCID 20 MG IV (16:10)
[2024-01-29] MEDS: OMNIPAQUE 50 ML PO (16:10)
--- NOTE | 2024-01-29 16:18 | HPS.HSE ---
Addendum entered and electronically signed by Gabi Molina MD 01/29/24 17:17:
I saw and examined the patient.
The PROCESS ENGINEERING MANAGER's note was reviewed and I agree with the note.
Comment:
73-year-old with past medical history of hypertension, hyperlipidemia, type 2 diabetes, presented with epigastric pain and poor appetite.
She had a left TKA on 01/12/2024 and since then she has not been feeling well.�
She was recently discharged for hyponatremia. She was discharged with salt tablet and Lasix.
A/P:
# Epigastric pain and poor appetite, suspect dyspepsia
Patient denies to any NSAID use
CT abdomen pelvis ordered by ER, follow-up
Start empiric Protonix IV twice daily
GI consult
# Persistent hyponatremia likely due to poor oral intake
# Mild hypercalcemia
Sodium level 129 on admission, status post IVF from ER, continue IV fluid NSS at 60 cc/h
Follow urine and serum osmolality
Calcium level 10.4, continue to monitor
# Hypomagnesia
Repleted in ER, follow-up lyte
# Generalized weakness, could be due to above
PT OT eval
# Sinus tachycardia, ?from dehydration
Monitor
# Anemia likely postop
Hemoglobin 8.6
No active bleeding
Check iron panel, B12, folate
Monitor hemoglobin
# Essential Hypertension
Continue losartan
# Diabetes Mellitus, Type II
Hold metformin.
A1C 7 %
Monitor sugars and continue coverage insulin
# Recent Left Total Knee Replacement on Jan 12
Consult PT/OT
Continue Tylenol for pain
Avoid NSAIDs
Aspirin for DVT prophylaxis
DVT proph: SCDs
Code Status: Full Code
Original Note:
Family Physician
-
Family Physician: Isabela Lazaro
Chief Complaint
-
generalized weakness
fatigue
epigastric gassy pain
History of Present Illness
73-year-old with past medical history for hypertension, hyperlipidemia, type 2 diabetes, presented to us with epigastric pain with any oral intake. Denies any nausea. Patient stated very poor appetite. She is only taking clear liquid diet. Denies
constipation, but only moving small bowels. Patient lost almost 7 to 10 pounds. Patient underwent left TKA on 01/12/2024. Since then she has not been feeling well. Patient stating headache. Denies dizziness or syncopal episode. Patient denied
blurry vision, numbness, tingling. Patient denied chest pain or short of breath. Patient denied dysuria materia. Patient stopped taking sodium chloride last Tuesday due to the unpleasant side effects. Patient stated, sodium provide was making
her lips dry, upset stomach. she had an lab done on and sodium was 133.
Patient was admitted here with hyponatremia. She was discharged on sodium chloride and Lasix
on arrival sodium 129. received 2l in ER. admitting for further management.
Medical History
Past Medical History
Past Medical History: Reports Other
Additional Past Medical History:
Essential Hypertension
Hyperlipidemia
Diabetes Mellitus, Type II
Osteoarthritis
Past Surgical History: Reports Other
Additional Past Surgical History:
Left knee total knee replacement
Social History
Tobacco: Non-smoker
Alcohol: None
Drug: None
Personal:
Living: With Family
Family History
Family History: Not pertinent
Allergies / Home Medications
Allergies reflects when Allergies were last updated in [facility].
Home Medications with original date entered in [facility]
Allergy/Medication List:
Allergies
Allergy/AdvReac Type Severity Reaction Status Date / Time
acetaminophen [From Percocet] Allergy Nausea Verified 01/29/24 12:59
oxycodone [From Percocet] Allergy Nausea Verified 01/29/24 12:59
Penicillins Allergy Unknown Verified 01/29/24 12:59
Sulfa (Sulfonamide Allergy Unknown Verified 01/29/24 12:59
Antibiotics)
tramadol Allergy Nausea Verified 01/29/24 12:59
Home Medications
Lipitor 1 tab PO DAILY High Cholesterol 01/18/24
acetaminophen 325 mg tablet (Tylenol) 650 mg PO Q4HPRN PRN mild pain 01/18/24
aspirin 81 mg tablet,delayed release 81 mg PO DAILY Blood Clot Prevention/Tx 01/18/24
cholecalciferol (vitamin D3) 25 mcg (1,000 unit) tablet (Vitamin D3) 25 mcg PO DAILY Supplement 01/18/24
famotidine 20 mg tablet (Pepcid) 20 mg PO DAILY Gastrointestinal Issue 01/18/24
metformin 1,000 mg tablet 1,000 mg PO BID Diabetes 01/18/24
polyethylene glycol 3350 17 gram oral powder packet (Miralax) 17 g PO DAILYPRN PRN constipation 01/18/24
sennosides 8.6 mg tablet (senna) 8.6 mg PO BIDPRN PRN constipation-if bm aftr miralax 01/18/24
simethicone 80 mg chewable tablet 80 mg PO TIDPRN PRN gas pains 01/18/24
losartan 50 mg tablet 50 mg PO BID 30 days #60 tabs 01/22/24
sucralfate 100 mg/mL oral suspension 10 ml PO QID 01/29/24
Review of Systems
-
Constitutional: Reports Weight Loss
EENT: Reports No Symptoms
Respiratory: Reports No Symptoms
Cardiac: Reports No Symptoms
Abdomen/GI: Reports Abdominal Pain
: Reports No Symptoms
Musculoskeletal: Reports No Symptoms
Skin: Reports No Symptoms
Neurological: Reports No Symptoms
Endocrine: Reports No Symptoms
Hematologic/Lymphatic: Reports No Symptoms
Psych: Reports No Symptoms
Physical Exam
Vital Signs
Vital Signs
Temp Pulse Resp BP Pulse Ox
97.6 F 116 20 143/92 100
01/29/24 12:56 01/29/24 12:56 01/29/24 12:56 01/29/24 12:56 01/29/24 12:56
Physical Exam
General: Well Developed, Well Nourished and No Apparent Distress
HEENT: NormoCephalic, Moist mucous membranes and Atraumatic
Respiratory: Clear
Cardiac: S1/S2 and Regular Rhythm; No Murmur or Rub
GI: Soft, Non Tender, Non Distended and Normal Bowel Sounds; No Organomegaly
Rectal: Deferred by Provider
Musculoskeletal: No Clubbing, No Cyanosis and No Edema
Skin: Rash and Other (Left knee replacement incision clean dry and intact)
Neuro: AO x 3 and Nonfocal/grossly intact
Psych: Calm
Laboratory Results
-
01/29/24 13:31
01/29/24 13:31
Laboratory Results
Total Bilirubin 0.5 mg/dl (0.2-1.3) 01/29/24 13:31
AST 26 U/L (14-36) 01/29/24 13:31
ALT 19 U/L (0-35) 01/29/24 13:31
Alkaline Phosphatase 75 U/L (38-126) 01/29/24 13:31
Data Reviewed
-
Lab Data: Labs Reviewed by me
Impression/Plan
-
#Hyponatremia/hypomagnesemia likely from poor oral intake
-Sodium 129, magnesium 1.5
-Received normal saline x 2 L in the ER
-Oral magnesium supplement in ER
-fluid restriction
-Monitor BMP in a.m.
# Epigastric pain likely dyspepsia
-Obtaining CT of abdomen pelvis
-Zofran as needed for nausea and vomiting
-IV Protonix 40 BID
-GI consulted
# Sinus tachycardia likely from dehydration
-Continue to monitor
-recieved 2l in ER
# Anemia likely postop
-Hemoglobin 8.6
-No active bleeding
-Continue to monitor
-iron panel added
#essential Hypertension
-Continue losartan
#Diabetes Mellitus, Type II
-Hold metformin. A1C at 7
-Monitor sugars and continue coverage insulin
#Recent Left Total Knee Replacement on Jan 12
-Consult PT/OT
-Continue Tylenol for pain
-Avoid NSAIDs
� Aspirin for DVT prophylaxis
#DVT proph: SCDs/asa
#Code Status: Full Code
[2024-01-29 19:19] VITALS: BMI 21.9
[2024-01-29 19:20] VITALS: BP 165/93
[2024-01-29] MEDS: CARAFATE SUSPENSION 1 GM PO ×2 (20:46→23:51)
[2024-01-29] MEDS: COZAAR 50 MG PO (20:47)
[2024-01-29] MEDS: PROTONIX IV 40 MG IV (20:53)
[2024-01-29] MEDS: NSS (PRESERVATIVE FREE) 10 ML IV (20:55)
[2024-01-29 21:06] LABS: Glucose - Point of Care 120 mg/dl (70-99)
--- NOTE | 2024-01-29 21:30 | PTCARENOTE ---
Receive pt from ER. Pt alert oriented X3, calm, cooperative and in no distress. Pt assist X1 w/RW steady on her feet, but complains about left knee pain related to her post total knee replacement. pPt also complains about mild epigastric pain. Pt
oriented to the room, call lockhart within reach, family at the bedside. Pt on S. Tachycardia on telemonitor. VN=566/93, ZK=024, T=98.3, SpO2=97% on RA. IVFs infusing and IV Protonix push and sulcrafate given as per order.
[2024-01-29 22:06] LABS: Osmolality Urine 549 mOsm/kg (300-900)
[2024-01-29 22:08] LABS: Urine Sodium 90 mmol/L (30-90)
[2024-01-29 22:19] LABS: Iron 56 ug/dl (37-170)
[2024-01-29 22:25] LABS: Osmolality Serum 275 mOsm/kg (275-300)
[2024-01-29] MEDS: TYLENOL 650 MG PO (22:59)
[2024-01-29 23:06] VITALS: BP 160/74
[2024-01-29 23:19] LABS: Urine Albumin Negative (Neg - Trace); Urine Bilirubin Negative (Negative); Urine Character Clear (Clear); Urine Color Straw; Urine Glucose Negative (Negative); Urine Ketone Negative (Negative); Urine Leukocyte Trace (Negative); Urine Nitrite Negative (Negative); Urine Occult Blood Negative (Negative); Urine Specific Gravity 1.005 (<1.030); Urine Urobilinogen Negative (Neg - 1+)
[2024-01-29 23:29] LABS: Ferritin 38.9 ng/ml (11.1-264.0)
[2024-01-29 23:40] LABS: Urine Bacteria Few (Negative); Urine Red Blood Cell 0-2 /HPF (0-2)
[2024-01-30] VITALS (7 sets, daily range): BP systolic 139–166; BP diastolic 70–94; PULSE 85; O2SAT 99; BMI 21.4
[2024-01-30] LABS: Folate 13.1 ng/ml (2.76-20); Vitamin B12 691 pg/ml (239-931)
[2024-01-30] MEDS: TYLENOL 650 MG PO ×2 (06:01→22:38)
[2024-01-30 08:01] LABS: Glucose - Point of Care 131 mg/dl (70-99)
[2024-01-30 08:24] LABS: Hematocrit 24.6 % (37.0-47.0); Hemoglobin 7.9 g/dL (12.0-16.0); Mean Corp Hgb Conc. 32.1 g/dL (33.0-37.0); Mean Corpuscular Volume 90.4 fL (81.0-99.0); Mean Platelet Volume 9.7 fL (7.4-10.4); Platelet Count 450 10^3/uL (130-400); Red Blood Cell Count 2.72 10^6/uL (4.20-5.40); Red Cell Dist. Width 16.4 % (11.5-14.5); White Blood Cell Count 6.3 10^3/uL (4.8-10.8)
[2024-01-30] MEDS: NOVOLOG FLEXPEN-LOW RESISTANCE SC ×2 (08:28→17:09)
[2024-01-30] MEDS: PROTONIX IV 40 MG IV ×2 (08:29→20:18)
[2024-01-30] MEDS: NSS (PRESERVATIVE FREE) 10 ML IV ×2 (08:29→20:18)
[2024-01-30] MEDS: ASPIR LOW (ENTERIC COATED) 81 MG PO (08:30)
[2024-01-30] MEDS: COZAAR 50 MG PO ×2 (08:30→20:18)
[2024-01-30] MEDS: CARAFATE SUSPENSION 1 GM PO ×4 (08:30→22:16)
[2024-01-30 08:53] LABS: Blood Urea Nitrogen 8 mg/dl (7-17); Calcium 9.4 mg/dl (8.4-10.2); Carbon Dioxide 23 mmol/L (22-30); Chloride 101 mmol/L (98-107); Estimated Creatinine Clearance 50 ml/min; Glucose 119 mg/dl (70-99); Potassium 4.8 mmol/L (3.5-5.1); Sodium 131 mmol/L (135-145); eGFR > 60.00
--- NOTE | 2024-01-30 10:02 | CON.GI ---
Addendum entered and electronically signed by Jb Lopez MD 01/30/24 18:12:
I saw and examined the patient.
The PA's note was reviewed and I agree with the note.
Comment:
The patient is a 73-year-old female with h/o DM, HTN, hyperlipidemia, and OA who p/w generalized weakness, fatigue, and epigastric pain.� The patient admits to a recent left total knee replacement, with subsequent NSAID use with aspirin 325 mg daily
along with meloxicam with acute onset of epigastric pain, loss of appetite, and weight loss.�
Impression / Rec:
1. Abdominal pain - in setting of NSAID use, possibly from PUD. Hgb is stable from previous. Will plan for EGD for further evaluation tomorrow. Continue with PPI. NPO.
Original Note:
Consultation
-
Date/Time Consultation Requested: 01/29/2024 @ 19:01
Date/Time Consultation Performed: 01/30/2024 @ 10:00
Requesting Provider: CECELIA Paulino
Performing Provider: CECELIA Arredondo; Dr. Jb Lopez
Reason for Consultation: abdominal pain, n/v/d
Medical History
Chief Complaint / HPI
Chief Complaint: generalized weakness, fatigue, epigastric pain, gassiness
History of Present Illness:
The patient is a 73-year-old female with a past medical history significant for type 2 diabetes, hypertension, hyperlipidemia, osteoarthritis, who presented to the emergency room with complaints of generalized weakness, fatigue, and epigastric pain.
We are being asked to evaluate for the presenting symptoms. Upon review of records, the patient had a recent admission 2 weeks ago for severe hyponatremia after evaluation for ongoing headache. She routine hypertonic saline in the ICU and was
evaluated by nephrology. She had been started on sodium chloride tablet and Lasix and discharged to home after her sodium levels improved. She did have a hemoglobin in the 7-8 range during that time which was thought to be secondary to postop
blood loss with no obvious signs of bleeding. She presents again with complaints as above, found to have a hemoglobin of 8.6 and a sodium of 129 which are baseline from her prior admission. Her daughter is also at the bedside to assist with HPI.
The patient reports that she has had ongoing epigastric discomfort since her knee surgery. She underwent a left total knee replacement on 01/12 and noticed 2 to 3 days later onset of the reported symptoms. Her daughter notes that postop she had
been placed on high-dose aspirin with 325 mg daily along with meloxicam daily for pain management. She had also been taking narcotics and had some constipation postop, but had been placed on a bowel regimen which had improved her bowel habits. She
has had ongoing Epigastric pain that is worsened after meals. She describes it as a burning sensation in the mid upper abdomen. She has also had an associated decreased appetite and 7 to 10 pounds of weight loss since her surgery as she does not
want to eat. She has mostly been the only tolerating liquids. Her daughter notes that she followed up with her primary care physician after her last hospitalization who had recommended she stop her sodium tablets and Lasix due to her ongoing
symptoms. Patient denies any obvious signs of bleeding such as melena, hematochezia, or hematemesis. She notes that she has only had small bowel movements the past few days but with notable diarrhea yesterday and today. She denies any fevers,
chills, chest pain, shortness of breath, lightheadedness, or syncope. She does admit to nausea with 2 episodes of vomiting prior to admission but no recurrent vomiting. She otherwise denies any blood thinners or recent antibiotics. She denies any
prior history of GI bleed, but her daughter does note that her hemoglobin runs in the 10-11 range at baseline. She denies any prior EGD but has had a colonoscopy remotely with no history of polyps. She denies any family history of GI cancers or
disorders. Routine labs on admission showed a sodium 129, hemoglobin 8.6, MCV 90.4, platelets 450,000, with normal renal function, LFTs, and iron studies. CT imaging of the abdomen pelvis with IV and oral contrast was done which was unrevealing
aside from some gastric folding and possible gastritis. Chest x-ray was normal. She was placed on twice daily PPI, Carafate, diabetic diet, and admitted for further evaluation by GI.
Past Medical History
Past Medical History: HTN, Hypercholesterolemia, NIDDM and Other (Osteoarthritis)
Past Surgical History: Orthopedic (Left total knee replacement on 01/12/2024)
Social History
Tobacco: Non-Smoker
Alcohol: None
Drug: None
Personal:
Living: With Family
Family History
Family History: Reviewed & Not Pertinent
Allergies / Home Medications
Allergy/AdvReac Type Severity Reaction Status Date / Time
acetaminophen [From Percocet] Allergy Nausea Verified 01/29/24 12:59
oxycodone [From Percocet] Allergy Nausea Verified 01/29/24 12:59
Penicillins Allergy Unknown Verified 01/29/24 12:59
Sulfa (Sulfonamide Allergy Unknown Verified 01/29/24 12:59
Antibiotics)
tramadol Allergy Nausea Verified 01/29/24 12:59
Medication Instructions Recorded
Lipitor 1 tab PO DAILY High Cholesterol 01/18/24
acetaminophen 325 mg tablet 650 mg PO Q4HPRN PRN mild pain 01/18/24
(Tylenol)
aspirin 81 mg tablet,delayed 81 mg PO DAILY Blood Clot 01/18/24
release Prevention/Tx
cholecalciferol (vitamin D3) 25 25 mcg PO DAILY Supplement 01/18/24
mcg (1,000 unit) tablet (Vitamin
D3)
famotidine 20 mg tablet (Pepcid) 20 mg PO DAILY Gastrointestinal 01/18/24
Issue
metformin 1,000 mg tablet 1,000 mg PO BID Diabetes 01/18/24
polyethylene glycol 3350 17 gram 17 g PO DAILYPRN PRN constipation 01/18/24
oral powder packet (Miralax)
sennosides 8.6 mg tablet (senna) 8.6 mg PO BIDPRN PRN 01/18/24
constipation-if bm aftr miralax
simethicone 80 mg chewable tablet 80 mg PO TIDPRN PRN gas pains 01/18/24
losartan 50 mg tablet 50 mg PO BID 30 days #60 tabs 01/22/24
sucralfate 100 mg/mL oral 10 ml PO QID Gastrointestinal Issue 01/29/24
suspension
Review of Systems
-
History Source: Patient and Family
Constitutional: Reports Weight Loss and Fatigue
EENT: Reports No Symptoms
Respiratory: Reports No Symptoms
Cardiac: Reports No Symptoms
Abdomen/GI: Reports Abdominal Pain, Nausea, Vomiting, Diarrhea, Constipated and Anorexia
: Reports No Symptoms
Musculoskeletal: Reports No Symptoms
Skin: Reports No Symptoms
Neurological: Reports Weakness
Endocrine: Reports No Symptoms
Vital Signs
Temp Pulse Resp BP Pulse Ox
97.4 F 93 18 158/94 99
01/30/24 07:35 01/30/24 08:30 01/30/24 07:35 01/30/24 08:30 01/30/24 07:35
Physical Exam
Exam
General: Well Developed, Well Nourished, No Apparent Distress and Comfortable
HEENT: Normocephalic, Anicteric and Atraumatic
Respiratory: Clear
Cardiac: S1/S2 and Regular Rhythm
Breast: Deferred by me
GI: Soft, Non Distended, Normal Bowel Sounds and Tender (Generalized abdominal tenderness, more significant in the midepigastric area)
Musculoskeletal: No Edema
Skin: Warm and Dry
Neuro: Awake, Alert and Oriented
Psych: Calm
Results
WBC 6.3 10^3/uL (4.8-10.8) 01/30/24 07:37
Hgb 7.9 g/dL (12.0-16.0) L 01/30/24 07:37
Hct 24.6 % (37.0-47.0) L 01/30/24 07:37
MCV 90.4 fL (81.0-99.0) 01/30/24 07:37
Plt Count 450 10^3/uL (130-400) H 01/30/24 07:37
Absolute Neuts (auto) 8.0 10^3/uL (1.4-6.5) H 01/29/24 13:31
Sodium 131 mmol/L (135-145) L 01/30/24 07:37
Potassium 4.8 mmol/L (3.5-5.1) 01/30/24 07:37
Chloride 101 mmol/L (98-107) 01/30/24 07:37
Carbon Dioxide 23 mmol/L (22-30) 01/30/24 07:37
BUN 8 mg/dl (7-17) 01/30/24 07:37
Creatinine 0.6 mg/dL (0.6-1.0) 01/30/24 07:37
Calcium 9.4 mg/dl (8.4-10.2) 01/30/24 07:37
Total Bilirubin 0.5 mg/dl (0.2-1.3) 01/29/24 13:31
AST 26 U/L (14-36) 01/29/24 13:31
ALT 19 U/L (0-35) 01/29/24 13:31
Alkaline Phosphatase 75 U/L (38-126) 01/29/24 13:31
Diagnostic Image Results:
01/29/2024 CT abdomen and pelvis with IV and oral contrast: 'IMPRESSION: Gastric mucosal/rugal fold prominence versus underdistention. Cannot exclude gastritis in the proper clinical setting. No evidence of bowel obstruction. Minor diverticulosis
without acute diverticulitis. No obstructive uropathy. Small right renal cysts.'
Prior GI Procedures:
EGD: None
Colonoscopy: Remote history with no history of polyps per patient
Assessment / Plan
-
The patient is a 73-year-old female with a past medical history significant for type 2 diabetes, hypertension, hyperlipidemia, osteoarthritis, who presented to the emergency room with complaints of generalized weakness, fatigue, and epigastric pain.
We are being asked to evaluate for the presenting symptoms. The patient admits to a recent left total knee replacement, with subsequent NSAID use with aspirin 325 mg daily along with meloxicam with acute onset of epigastric pain, loss of appetite,
and weight loss. No prior EGD or history of peptic ulcer disease. Also with mild anemia which has been stable from prior admission. No obvious signs of bleeding currently. Started on twice daily PPI and Carafate ACHS, with some improvement of
symptoms but ongoing epigastric discomfort.
Problem list:
-epigastric pain, recent NSAID use post-op
-recent left total knee replacement
-normocytic anemia, no iron deficiency (baseline 10-11 per pts daughter)
-hyponatremia
-hypomagnesemia, resolved
-diarrhea, ?overflow diarrhea
Other pertinent medical hx:
-DM2
-HTN
-HLD
-Osteoarthritis
Recommendations:
-Etiology of current symptoms possibly secondary to gastritis versus peptic ulcer disease versus gastroparesis w/ hx of diabetes versus other.
---With use of recent NSAID's likely cause of symptoms. CT finding showing prominence of gastric folds/?gastritis otherwise unrevealing for cause. Currently with no overt signs of bleeding and she is not iron deficient. Hgb A1C was 7 recently.
-Would recommend EGD for further evaluation given ongoing symptoms and recent NSAID's to rule out PUD. Will review timing with Dr. Lopez
-Continue BID PPI and Carafate ACHS (note that this can worsen constipation)
-Full liquid diet, as she has pain with regular foods. NPO after MN
-Avoid NSAID's
-Monitor Na levels
-Consider hematology evaluation outpatient
-Would advise on daily MiraLax to prevent constipation
-Consider stool studies if ongoing diarrhea but likely element of overflow
-Will follow
Data Reviewed
-
CT Scan: Report Reviewed by me
Old Records: Reviewed
-
-
Thank you for consultation and allowing me to participate in the patient's care. Please call the batch tank controller GI physician during the after hours with any questions or concerns.
[2024-01-30 11:53] LABS: Glucose - Point of Care 154 mg/dl (70-99)
[2024-01-30] MEDS: NOVOLOG FLEXPEN-LOW RESISTANCE 1 UNITS SC (12:48)
[2024-01-30] MEDS: NSS 1000 IV (12:48)
--- NOTE | 2024-01-30 14:33 | CM ---
Patient seen at bedside with physician and patient son. Patient stated that she lives with her and her son's family in a 2 story home. 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 Nguyen. Patient [place] the [facility] [id number] Patient s/p knee replacement 01/12/24 and they have a walker and wheelchair at home. Patient plan is home with VN/PT/OT. Patient did have outpatient therapy prior to admission and now son indicated that he had requested home PT/OT
and scheduled it to start tomorrow. Patient son to update CM with name of the company that would provide VN/PT/OT. Patient for testing tomorrow. CM will continue to follow for discharge planning needs.
Plan; home with VN vs outpatient therapy
--- NOTE | 2024-01-30 14:55 | W.PN.HOSP.TC ---
Today's Communication/Plan
-
add on lipase
renew IVF
EGD hopefully tomorrow
follow HGB
Assessment / Plan
Assessment / Plan
pt is a 73 year old female
Epigastric pain --PUD, gastritis from NSAID use--reviewed CT scan--nothing acute--cont IV PPI--await GI--will need EGD--Zofran as needed for nausea and vomiting--add lipase
Hyponatremia/hypomagnesemia likely from poor oral intake--Sodium 129, magnesium 1.5---Received normal saline x 2 L in the ER---Oral magnesium supplement in ER--fluid restriction
Sinus tachycardia likely from dehydration--Continue to monitor
Acute Anemia likely postop on anemia of chronic disease--no active bleeding--if HGB drops below 7, transfuse--consent obtained
essential Hypertension--Continue losartan
Diabetes Mellitus, Type II--Hold metformin. A1C at 7--Monitor sugars and continue coverage insulin
Recent Left Total Knee Replacement on Jan 12--Consult PT/OT--Continue Tylenol for pain--Avoid NSAIDs--Aspirin for DVT prophylaxis
DVT proph: SCDs/asa
Code Status: Full Code
Anticipated Discharge: > 48 hours
Subjective/Interval History
-
Date of Service: January 30, 2024
pt c/o epigastric pain with eating
Objective Data
-
Labs:
Laboratory Results
01/30/24
07:37
WBC 6.3
Hgb 7.9 L
Hct 24.6 L
Plt Count 450 H
Sodium 131 L
Potassium 4.8
Chloride 101
Carbon Dioxide 23
BUN 8
Creatinine 0.6
Glucose 119 H
Calcium 9.4
Vital Signs:
max temp for 24 hours
01/30/24
11:21
Temp 97.9 F
Vital Signs
Temp Pulse Resp BP Pulse Ox
97.9 F 87 18 157/82 99
01/30/24 11:21 01/30/24 11:21 01/30/24 11:21 01/30/24 11:21 01/30/24 11:21
I&O
01/29/24 01/30/24 01/31/24
06:59 06:59 06:59
Intake Total 760 / 760
Output Total 600 / 600
Balance 160 / 160
Review of Systems
-
All other systems: Reviewed and negative
Physical Exam
-
General: Well Developed, Well Nourished and No Apparent Distress
HEENT: Normocephalic and Atraumatic; Negative Oxygen
Respiratory: Clear to Auscultation; Negative Wheezes or Rhonchi
Cardiac: Regular Rhythm and S1/S2; Negative Murmur
GI: Soft, Nontender, Nondistended and Normal Bowel Sounds
Musculoskeletal: No Clubbing, No Cyanosis and No Edema
Neuro: Awake
Psych: Calm
[2024-01-30 15:56] LABS: Lipase 165 U/L (23-300)
[2024-01-30 17:08] LABS: Glucose - Point of Care 140 mg/dl (70-99)
[2024-01-30] MEDS: ANESTHETIC LOZENGE 1 LOZENGE PO (18:17)
[2024-01-30 21:18] LABS: Hepatitis C Antibody Negative (Negative)
[2024-01-30 21:32] LABS: Glucose - Point of Care 105 mg/dl (70-99)
[2024-01-31 03:30] VITALS: BP 154/84
[2024-01-31] MEDS: NSS 1000 IV (05:02)
[2024-01-31 07:23] LABS: Glucose - Point of Care 151 mg/dl (70-99)
[2024-01-31 07:55] VITALS: BP 160/91
[2024-01-31 08:36] LABS: Hematocrit 24.3 % (37.0-47.0); Hemoglobin 8.1 g/dL (12.0-16.0); Mean Corp Hgb Conc. 33.3 g/dL (33.0-37.0); Mean Corpuscular Hgb 29.9 pg (27.0-31.0); Mean Corpuscular Volume 89.7 fL (81.0-99.0); Mean Platelet Volume 10.4 fL (7.4-10.4); Platelet Count 420 10^3/uL (130-400); Red Blood Cell Count 2.71 10^6/uL (4.20-5.40); Red Cell Dist. Width 16.5 % (11.5-14.5); White Blood Cell Count 5.5 10^3/uL (4.8-10.8)
[2024-01-31] MEDS: CARAFATE SUSPENSION 1 GM PO ×2 (08:47→11:15)
[2024-01-31] MEDS: ASPIR LOW (ENTERIC COATED) 81 MG PO (08:48)
[2024-01-31] MEDS: NSS (PRESERVATIVE FREE) 10 ML IV (08:49)
[2024-01-31] MEDS: PROTONIX IV 40 MG IV (08:49)
[2024-01-31] MEDS: COZAAR 50 MG PO (08:50)
[2024-01-31] MEDS: NOVOLOG FLEXPEN-LOW RESISTANCE SC ×2 (08:55→11:29)
[2024-01-31 09:06] LABS: Blood Urea Nitrogen 5 mg/dl (7-17); Calcium 10.1 mg/dl (8.4-10.2); Carbon Dioxide 22 mmol/L (22-30); Chloride 100 mmol/L (98-107); Estimated Creatinine Clearance 50 ml/min; Glucose 145 mg/dl (70-99); Potassium 4.5 mmol/L (3.5-5.1); Sodium 132 mmol/L (135-145); eGFR > 60.00
[2024-01-31] MEDS: LIPITOR 10 MG PO (09:42)
--- NOTE | 2024-01-31 10:19 | PTCARENOTE ---
Pt laying in bed a+ox3 waiting for her procedure today, EGD. pt in no distress, family in room
[2024-01-31] MEDS: TYLENOL 650 MG PO (11:15)
[2024-01-31 11:55] VITALS: BP 154/95
--- NOTE | 2024-01-31 12:38 | PTCARENOTE ---
Pt left the floor with transport to go to her EGD, pt walked to stretcher with walker w/o incident.
--- NOTE | 2024-01-31 14:23 | CM ---
Patient seen at bedside with the physician. Patient completed IMM and signed form placed on chart. Patient to go home with family and stated that she has no needs. CM will continue to follow for discharge planning needs.
Plan; home with no needs
--- NOTE | 2024-01-31 15:04 | W.PN.HOSP.TC ---
Today's Communication/Plan
-
d/c
Assessment / Plan
Assessment / Plan
pt is a 73 year old female
Epigastric pain --PUD, gastritis from NSAID use--reviewed CT scan--nothing acute--cont PPI--apprec GI--s/p EGD with linear ulcers, repeat EGD in 2 months--Zofran as needed for nausea and vomiting-- lipase wnl
Hyponatremia/hypomagnesemia likely from poor oral intake----Received normal saline x 2 L in the ER---Oral magnesium supplement in ER--fluid restriction
Sinus tachycardia likely from dehydration--Continue to monitor
Acute Anemia likely postop on anemia of chronic disease--no active bleeding--if HGB drops below 7, transfuse--consent obtained
essential Hypertension--Continue losartan
Diabetes Mellitus, Type II--Hold metformin. A1C at 7--Monitor sugars and continue coverage insulin
Recent Left Total Knee Replacement on Jan 12--Consult PT/OT--Continue Tylenol for pain--Avoid NSAIDs--Aspirin for DVT prophylaxis
DVT proph: SCDs/asa
Code Status: Full Code
Anticipated Discharge: Today
Subjective/Interval History
-
Date of Service: January 31, 2024
pt doing ok--happy to go home
Objective Data
-
Labs:
Laboratory Results
01/31/24
08:00
WBC 5.5
Hgb 8.1 L
Hct 24.3 L
Plt Count 420 H
Sodium 132 L
Potassium 4.5
Chloride 100
Carbon Dioxide 22
BUN 5 L
Creatinine 0.6
Glucose 145 H
Calcium 10.1
Vital Signs:
Vital Signs max temp for 24 hours
01/30/24
23:20
Temp 98.0 F
Temp Pulse Resp BP Pulse Ox
97.6 F 98 16 154/95 100
01/31/24 11:55 01/31/24 11:55 01/31/24 11:55 01/31/24 11:55 01/31/24 14:19
I&O
01/30/24 01/31/24 02/01/24
06:59 06:59 06:59
Intake Total 760 / 760 1500 / 1500
Output Total 600 / 600
Balance 160 / 160 1500 / 1500
Review of Systems
-
All other systems: Reviewed and negative
Physical Exam
-
General: Well Developed, Well Nourished and No Apparent Distress
HEENT: Normocephalic and Atraumatic
Respiratory: Clear to Auscultation; Negative Wheezes or Rhonchi
Cardiac: Regular Rhythm and S1/S2; Negative Murmur
GI: Soft, Nontender, Nondistended and Normal Bowel Sounds
Musculoskeletal: No Clubbing, No Cyanosis and No Edema
Neuro: Awake
Psych: Calm
[2024-01-31 15:30] VITALS: BP 163/94
--- NOTE | 2024-01-31 16:17 | VNURNOTE ---
Home Health Liaison spoke with patient at 1615 to discuss [facility] nurse/therapy, visits, schedule and homebound status. Patient is agreeable and understands that visits at home will be 2-3 x per week to assess and teach medical management.
Patient is aware that [facility] will contact them for start of care in 1-2 days after discharge from .
[facility] referral completed in [facility].
--- NOTE | 2024-01-31 18:46 | W.DCSUMMARY ---
Addendum entered and electronically signed by Tata Mcghee MD 02/02/24 06:29:
As per RD note, Pt meets criteria for severe protein calorie malnutrition of acute illness with > 5% wt loss x 1 mo., prolonged poor intake prior to hospital admit < 50% estimated energy needs > 5 days.
Original Note:
Discharge Summary
Discharge Data
Date of Admission: 01/29/24
Date of Discharge: 01/31/24
-
Pending Results: No
Hospital Course
Primary care physician : Isabela Lazaro
Principal Discharge diagnosis : Epigastric pain due to peptic ulcer disease, hyponatremia/hypomagnesemia from poor oral intake
Chronic Discharge diagnosis : Acute anemia on anemia of chronic disease, essential hypertension, type 2 diabetes mellitus, recent left total knee replacement
Hospital Course : Patient is a 73-year-old female with a history for essential hypertension, hyperlipidemia, type 2 diabetes who presented with epigastric pain. She denied nausea but did have a poor appetite. She had a left total knee replacement
on January 12, 2024. Since then she was not feeling well. She denied dizziness or syncope. She stopped taking her sodium chloride tablets due to the unpleasant side effects. On arrival sodium was 129. She received 2 L of fluid in the emergency
department. And was admitted for further management.
Problem #1: Epigastric pain due to peptic ulcer disease. Patient has been taking more nonsteroidal medications due to her total knee replacement. CAT scan of the abdomen pelvis was done without anything acute. She was started on a proton pump
inhibitor. GI was consulted and the patient underwent EGD. That showed linear ulcers as likely the cause. There was no active bleeding noted. Plan is for proton pump inhibitor twice daily for 1 month followed by daily thereafter with repeat EGD
in 2 months to assess for healing. Patient is tolerating a diet.
Problem #2: Hyponatremia/hypomagnesemia from poor oral intake. Patient was given supplementation as needed.
Problem #3: All other medical issues. These include Acute anemia on anemia of chronic disease, essential hypertension, type 2 diabetes mellitus, recent left total knee replacement. These medical issues were stable during her hospitalization.
Medications were continued as able.
Patient is stable for discharge home at this time. If there are any questions regarding this dictation or her hospital stay, please not hesitate to call. Our office number is [phone].
Important imaging findings :
CT SCAN ABDOMEN/PELVIS IMPRESSION:
Gastric mucosal/rugal fold prominence versus underdistention. Cannot exclude gastritis in the proper clinical setting.
No evidence of bowel obstruction.
Minor diverticulosis without acute diverticulitis.
No obstructive uropathy. Small right renal cysts.
Procedure findings :
ENDOSCOPY Impression:� - Small hiatal hernia.
�� � � � � � � � � � � - Non-bleeding multiple large linear gastric ulcers.
�� � � � � � � � � � � Biopsied for h.pylori.
�� � � � � � � � � � � - Normal examined duodenum.
�� � � � � � � � � � � - The procedure was short and abbreviated due to her
�� � � � � � � � � � � coughing and concern for bronchospasm, however, no
�� � � � � � � � � � � oxygen desaturation. Regardless, the culprit for her
�� � � � � � � � � � � anemia and epigastric pain were found (ulcers).
Discharge Plan
-
Patient Disposition: Home (Routine Discharge)
Discharge Diagnosis/Procedures: Epigastric pain due to linear ulcers found on EGD, hyponatremia/hypomagnesemia, acute anemia on anemia of chronic disease, essential hypertension, type 2 diabetes mellitus, recent left total knee replacement
Condition: Good
Diet: As tolerated and Regular
Activity: As tolerated
Driving Restrictions: As prior to admission
Bathing Restrictions: None
Referrals:
Isabela Lazaro MD [Family Provider] - in less than 1 week
Angela Dominguez DO [Active] - in six weeks (will need repeat EGD in 2 months to ensure healing)
Additional Discharge Medication Instructions: Stop all nonsteroidal medications (Advil, ibuprofen, Aleve, Motrin, etc.)
Prescriptions:
New
atorvastatin 10 mg Tablet
10 mg PO DAILY Qty: 0 0RF
pantoprazole 40 mg tablet,delayed release (DR/EC)
40 mg PO BID Qty: 90 0RF
Rx Instructions:
take twice daily for 30 days then take 1 tab daily indefinitely
Continued
sennosides [senna] 8.6 mg Tablet
8.6 mg PO BIDPRN PRN (Reason: constipation-if bm aftr miralax)
acetaminophen [Tylenol] 325 mg Tablet
650 mg PO Q4HPRN PRN (Reason: mild pain)
polyethylene glycol 3350 [Miralax] 17 gram Powder In Packet
17 g PO DAILYPRN PRN (Reason: constipation)
metformin 1,000 mg Tablet
1,000 mg PO BID
simethicone 80 mg Tablet,Chewable
80 mg PO TIDPRN PRN (Reason: gas pains)
cholecalciferol (vitamin D3) [Vitamin D3] 25 mcg (1,000 unit) Tablet
25 mcg PO DAILY
sucralfate 100 mg/mL suspension
10 ml PO QID
losartan 50 mg Tablet
50 mg PO BID 30 Days Qty: 60 0RF
Discontinued
aspirin 81 mg Tablet,Delayed Release (Dr/Ec)
81 mg PO DAILY
famotidine [Pepcid] 20 mg Tablet
20 mg PO DAILY
Lipitor
1 tab PO DAILY
Patient Comments:
01/24/24-no record at pharamcy or ecw or dose or directions
Discharge Orders:
Discharge Patient (As Directed); Ordered 01/31/24
Ordered By: Tata Mcghee
Discharge Date and Time
Discharge Date/Time: 01/31/24 17:24
--- NOTE | 2024-02-01 10:56 | PN.CDI ---
CDI
- -
CDI:
Physician Documentation Request
Admit Date: 01/29/24 17:35
Dear Doctor Taz,
01/29 RD note states ' Pt meets criteria for severe protein calorie malnutrition of acute illness with > 5% wt loss x 1 mo., prolonged poor intake prior to hospital admit < 50% estimated energy needs > 5 days. '
Based on the information, which of the following most accurately represents the patient's nutritional status?
Malnutrition (specify if mild, moderate or severe)
No nutritional deficiency
Other (please specify)
[place] Criteria ([facility] Hospitalist 2017)
2 or more criteria must be present for either
non severe or severe malnutrition
Note that the criteria differs related to the
presence of an acute or chronic illness
Acute Illness Chronic Illness
Energy Intake Non Severe: <75% for >7 days Non Severe: <75% for >1 month
Severe: <50% for >5 days Severe: <75% for >1 month
Weight Loss Non Severe: 1-2% over 1 week Non Severe: 5% over 1 month
5% over 1 month 7.5% over 3 months
7.5% over 3 months 10% over 6 months
1 year N/A 20% over 1 year
Severe: >2% over 1 week Severe: >5% over 1 month
>5% over 1 month >7.5% over 3 months
>7.5% over 3 months >10% over 6 months
1 year N/A >20% over 1 year
Body Fat Non Severe: Mild Decrease Non Severe: Mild Loss
Severe: Moderate Decrease Severe: Severe Loss
Muscle Mass Non Severe: Mild Decrease Non Severe: Mild Loss
Severe: Moderate Decrease Severe: Severe Loss
Fluid Accumulation Non Severe: Mild Accumulation Non Severe: Mild Accumulation
Severe: Moderate to severe Severe: Moderate to severe
accumulation accumulation
Reduced Bowling Alley Mechanic Strength Non Severe: N/A Non Severe: N/A
Severe: Measurably reduced Severe: Measurably reduced
Additional criteria that can be used to Determine if Mild or Moderate Malnutrition ([employer] Manual 2018)
Mild Moderate Severe
Albumin gm/dl <3.0 gm/dl <2.5 gm/dl <2.0 gm/dl
Pre Albumin mg/dl <15 gm/dl <10 mg/dl <5.0 mg/dl
BMI <18.5 <17 <16
Use of terms such as suspected, likely, concern for, or probable (associated with a specific diagnosis that is being evaluated, monitored, or treated as if it exists) are acceptable and can be coded in the inpatient setting, when documented at the
time of discharge.
Thank you,
Bre Field RN, BSN
CDI Specialist
tiger text
Please use your independent medical judgment in providing your response.
== END 2024-01-31 17:24 | disposition home or self-care (01) | DRG 383 ==
LOC: 4 EAST ACU 17:35
PROVIDERS: Internal Medicine; Registered Nurse; ADMITTING PHYSICIAN Internal Medicine; ATTENDING PHYSICIAN Internal Medicine; CONSULT PHYSICIAN Internal Medicine Gastroenterology; EMERGENCY PHYSICIAN Student in an Organized Health Care Education/Training Program; FAMILY PHYSICIAN Internal Medicine
PROC: 0DB78ZX Excision of Stomach, Pylorus, Via Natural or Artificial Opening Endoscopic, Diagnostic (ICD-10-PCS; 2024-01-31)
DX: K25.9 Gastric ulcer, unspecified as acute or chronic, without hemorrhage or perforation (principal); E43 Unspecified severe protein-calorie malnutrition; E87.1 Hypo-osmolality and hyponatremia; D62 Acute posthemorrhagic anemia; K44.9 Diaphragmatic hernia without obstruction or gangrene; E83.42 Hypomagnesemia; E83.52 Hypercalcemia; E86.0 Dehydration; I10 Essential (primary) hypertension; E11.9 Type 2 diabetes mellitus without complications; Z68.21 Body mass index [BMI] 21.0-21.9, adult
CPT/HCPCS: 88305; 74177; 80048; 80053; 81003; 81015; 82607; 82728; 82746; 82962; 83540; 83690; 83735; 83930; 83935; 84300; 85025; 85027; 86803; 88342; 93005; 96361; 96374; 96375; 97162; 99285; Q9967

== ENCOUNTER 2024-04-09 16:44 | Emergency (ER) | payer SELFPAY ==
[2024-04-09 16:44] VITALS: BMI 21.7
[2024-04-09 16:49] VITALS: BP 163/105
[2024-04-09 17:21] LABS: % Basophils 0.2 % (0-2); % Eosinophils 1.3 % (0-6); % Immature Granulocytes 0.7 % (0-0.5); % Lymphocytes 13.1 % (20.5-51.1); % Monocytes 4.3 % (1.7-9.3); % Neutrophils 80.4 % (42.2-75.2); Absolute Eosinophils 0.2 10^3/uL (0-0.7); Absolute Immature Granulocytes 0.1 10^3/uL (0-0.05); Absolute Monocytes 0.6 10^3/uL (0.1-0.6); Absolute Neutrophils 11.9 10^3/uL (1.4-6.5); Hematocrit 28.3 % (37.0-47.0); Hemoglobin 9.1 g/dL (12.0-16.0); Mean Corp Hgb Conc. 32.2 g/dL (33.0-37.0); Mean Corpuscular Hgb 26.1 pg (27.0-31.0); Mean Corpuscular Volume 81.1 fL (81.0-99.0); Mean Platelet Volume 10.7 fL (7.4-10.4); Nucleated Red Blood Cells % 0 %; Platelet Count 401 10^3/uL (130-400); Red Blood Cell Count 3.49 10^6/uL (4.20-5.40); Red Cell Dist. Width 15.9 % (11.5-14.5); White Blood Cell Count 14.8 10^3/uL (4.8-10.8)
[2024-04-09 17:32] LABS: ALT (SGPT) 18 U/L (0-35); AST (SGOT) 34 U/L (14-36); Alkaline Phosphatase 56 U/L (38-126); Blood Urea Nitrogen 13 mg/dl (7-17); Calcium 10.7 mg/dl (8.4-10.2); Carbon Dioxide 17 mmol/L (22-30); Chloride 101 mmol/L (98-107); Glucose 114 mg/dl (70-99); Potassium 4.5 mmol/L (3.5-5.1); Sodium 133 mmol/L (135-145); Total Bilirubin 0.5 mg/dl (0.2-1.3); Total Protein 7.7 g/dl (6.3-8.2); eGFR > 60.00
[2024-04-09 17:43] LABS: Troponin I < 0.012 ng/ml
[2024-04-09] MEDS: TYLENOL 650 MG PO (18:38)
[2024-04-09 19:58] VITALS: BP 167/96
[2024-04-09 20:00] VITALS: BP 156/89
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
[2024-04-09 21:00] VITALS: BP 176/103
== END 2024-04-09 23:16 | disposition home or self-care (01) ==
LOC: EMR 16:44
PROVIDERS: Emergency Medicine; EMERGENCY PHYSICIAN Emergency Medicine
DX: S62.001A Unspecified fracture of navicular [scaphoid] bone of right wrist, initial encounter for closed fracture (principal); M54.2 Cervicalgia; R07.9 Chest pain, unspecified; G44.309 Post-traumatic headache, unspecified, not intractable; V43.62XA Car passenger injured in collision with other type car in traffic accident, initial encounter; I10 Essential (primary) hypertension; E04.1 Nontoxic single thyroid nodule; E11.9 Type 2 diabetes mellitus without complications; E78.00 Pure hypercholesterolemia, unspecified; D64.9 Anemia, unspecified; Z96.652 Presence of left artificial knee joint; Z88.6 Allergy status to analgesic agent; Z88.5 Allergy status to narcotic agent; Z88.0 Allergy status to penicillin; Z88.2 Allergy status to sulfonamides
CPT/HCPCS: 99285; 29125; 70450; 71046; 71260; 72125; 73110; 80053; 84484; 85025; 93005; Q9967

== ENCOUNTER 2024-08-28 06:11 | Day surgery (SDC) | payer OTHER, MEDICARE, SELFPAY ==
[2024-08-20 10:03] VITALS: BMI 20.9
[2024-08-20 10:43] LABS: Hematocrit 29.1 % (37.0-47.0); Hemoglobin 8.9 g/dL (12.0-16.0); Mean Corp Hgb Conc. 30.6 g/dL (33.0-37.0); Mean Corpuscular Hgb 24.4 pg (27.0-31.0); Mean Corpuscular Volume 79.7 fL (81.0-99.0); Mean Platelet Volume 11.1 fL (7.4-10.4); Platelet Count 349 10^3/uL (130-400); Red Blood Cell Count 3.65 10^6/uL (4.20-5.40); Red Cell Dist. Width 16.7 % (11.5-14.5); White Blood Cell Count 8.2 10^3/uL (4.8-10.8)
[2024-08-20 11:11] LABS: Blood Urea Nitrogen 12 mg/dl (7-17); Calcium 10.8 mg/dl (8.4-10.2); Carbon Dioxide 24 mmol/L (22-30); Chloride 102 mmol/L (98-107); Estimated Creatinine Clearance 46 ml/min; Glucose 113 mg/dl (70-99); Potassium 5.3 mmol/L (3.5-5.1); Sodium 140 mmol/L (135-145); eGFR > 60.00
--- NOTE | 2024-08-22 10:07 | PTCARENOTE ---
Abnormal hemoglobin, 8.9, on 08/20. Salima at Dr. Stephenson's office aware.
--- NOTE | 2024-08-24 13:53 | PTCARENOTE ---
Patients 08/20 Hgb 8.9- reviewed by Dr. Jimenes- T&S to done bedside
[2024-08-28] VITALS (7 sets, daily range): BP systolic 132–176; BP diastolic 54–77; BMI 20.9
[2024-08-28 09:28] LABS: Glucose - Point of Care 105 mg/dl (70-99)
[2024-08-28] MEDS: TYLENOL 1000 MG PO (09:30)
[2024-08-28] MEDS: NORMOSOL-R/PLASMALYTE-A 1000 IV (09:31)
[2024-08-28 12:39] LABS: Glucose - Point of Care 121 mg/dl (70-99)
== END 2024-08-28 14:18 | disposition home or self-care (01) ==
LOC: SDS 06:11
PROVIDERS: ATTENDING PHYSICIAN Orthopaedic Surgery Hand Surgery
DX: S62.024K Nondisplaced fracture of middle third of navicular [scaphoid] bone of right wrist, subsequent encounter for fracture with nonunion (principal); X58.XXXA Exposure to other specified factors, initial encounter
CPT/HCPCS: 25440; 36415; 73100; 76000; 80048; 82962; 85027; 86850; 86870; 86880; 86900; 86901; 93005; C1713

== ENCOUNTER 2024-11-25 11:27 | Emergency (ER) | payer OTHER, SELFPAY ==
[2024-11-25 11:29] VITALS: BP 188/99
[2024-11-25 12:03] LABS: % Basophils 0.3 % (0-2); % Eosinophils 0.7 % (0-6); % Immature Granulocytes 0.2 % (0-0.5); % Lymphocytes 31.7 % (20.5-51.1); % Monocytes 4.4 % (1.7-9.3); % Neutrophils 62.7 % (42.2-75.2); Absolute Eosinophils 0.1 10^3/uL (0-0.7); Absolute Lymphocytes 3.5 10^3/uL (1.2-3.4); Absolute Monocytes 0.5 10^3/uL (0.1-0.6); Absolute Neutrophils 6.9 10^3/uL (1.4-6.5); Hematocrit 29.2 % (37.0-47.0); Hemoglobin 8.9 g/dL (12.0-16.0); Mean Corp Hgb Conc. 30.5 g/dL (33.0-37.0); Mean Corpuscular Hgb 24.1 pg (27.0-31.0); Mean Corpuscular Volume 79.1 fL (81.0-99.0); Mean Platelet Volume 10.5 fL (7.4-10.4); Nucleated Red Blood Cells % 0 %; Platelet Count 383 10^3/uL (130-400); Red Blood Cell Count 3.69 10^6/uL (4.20-5.40); Red Cell Dist. Width 16.6 % (11.5-14.5); White Blood Cell Count 10.9 10^3/uL (4.8-10.8)
[2024-11-25 12:17] LABS: ALT (SGPT) 18 U/L (0-35); AST (SGOT) 23 U/L (14-36); Alkaline Phosphatase 60 U/L (38-126); Blood Urea Nitrogen 14 mg/dl (7-17); Calcium 10.7 mg/dl (8.4-10.2); Carbon Dioxide 23 mmol/L (22-30); Chloride 99 mmol/L (98-107); Glucose 212 mg/dl (70-99); Potassium 4.6 mmol/L (3.5-5.1); Sodium 135 mmol/L (135-145); Total Bilirubin 0.4 mg/dl (0.2-1.3); Total Protein 7.6 g/dl (6.3-8.2); eGFR > 60.00
[2024-11-25 16:02] VITALS: BP 183/105
--- NOTE | 2024-11-25 16:25 | ED.GENMED ---
History of Present Illness
General
Chief Complaint: Blood Pressure Problem
Source: patient
Exam Limitations: none
Time Seen by Provider: 11/25/24 16:05
History of Present Illness
History of Present Illness:
74-year-old female with history of hypertension on losartan 50 mg daily presents complaining of itchiness in the arms and face after starting a cough medicine she took for a cold. She was taking benzo negative. She states she has a history of
significant medical allergies. She notes a headache in the front of her head without associated vision change unilateral numbness or slurred speech. No chest pain or shortness of breath. No vomiting or diarrhea. She has had a good appetite. No
other complaints.
Past History
Past History
ED Past Medical History: HTN, Hypercholesterolemia, NIDDM and Other (anemia, Ulcers)
ED Past Surgical History: Orthopedic (Left knee TKA)
Social History
Tobacco: Non-smoker
Alcohol: None
Drug: None
Personal:
Living: with family
Phy Exam
Physical Exam
Physical Exam:
General: Well-appearing female no acute respiratory distress
HEENT: Normocephalic atraumatic pupils equal round reactive to light
Heart: Regular rate and rhythm
Lungs: Clear no wheeze
Neurologic exam: Alert and oriented no facial asymmetry or slurredspeech
Skin warm pruritic rash of the arms.
Course
Orders/Labs/Results
Orders:
Orders
11/25/24 11:34
ECG [Electrocardiogram (*1)] Urgent
Reason for Study: Hypertension, Benign
11/25/24 11:35
EKG- Treatment ONCE
11/25/24 11:47
Complete Blood Count/With Diff Urgent
Comprehensive Metabolic Panel Urgent
11/25/24 16:18
Acetaminophen [Tylenol] 650 mg PO NOW STA
Prednisone [Deltasone] 50 mg PO NOW STA
11/25/24 16:55
Troponin I Urgent
Abnormal Lab Results
11/25/24
11:47
WBC 10.9 H 10^3/uL
(4.8-10.8)
RBC 3.69 L 10^6/uL
(4.20-5.40)
Hgb 8.9 L g/dL
(12.0-16.0)
Hct 29.2 L %
(37.0-47.0)
MCV 79.1 L fL
(81.0-99.0)
MCH 24.1 L pg
(27.0-31.0)
MCHC 30.5 L g/dL
(33.0-37.0)
RDW 16.6 H %
(11.5-14.5)
MPV 10.5 H fL
(7.4-10.4)
Absolute Neuts (auto) 6.9 H 10^3/uL
(1.4-6.5)
Absolute Lymphs (auto) 3.5 H 10^3/uL
(1.2-3.4)
Glucose 212 H mg/dl
(70-99)
Calcium 10.7 H mg/dl
(8.4-10.2)
11/25/24 11:47
11/25/24 11:47
Vital Signs
Initial and Last Documented VS:
Initial Vital Signs
Temp Pulse Resp BP Pulse Ox
97.7 F 86 16 188/99 100
11/25/24 11:29 11/25/24 11:29 11/25/24 11:29 11/25/24 11:29 11/25/24 11:29
Last Documented Vital Signs
Temp Pulse Resp BP Pulse Ox
98.1 F 89 23 175/95 99
11/25/24 16:32 11/25/24 18:15 11/25/24 18:15 11/25/24 18:00 11/25/24 18:15
MDM/Problems Addressed
Differential Diagnosis Includes:
Elevated blood pressure readings. She was seen at the urgent care and sent here for the blood pressure. She took her losartan as scheduled. She thinks she may be reacting to the Tessalon she was prescribed and stopped taking 2 days ago. Will
give Tylenol for headache. Prednisone will be ordered for itch. Will recheck blood pressure.
Upon review of labs. She has a baseline anemia of hemoglobin of 8.9.
*Critical Care Note
Total Time (30-74mins, 75-104mins- exclusive of procedures): Not Applicable
Update Note
Update Note:
Patient reevaluated. Blood pressure and headache improved. Neurologically intact. Consider imaging however not indicated at this point given resolution of symptoms and control blood pressure. Recommend she does follow-up with family recheck of
blood pressure. She will continue the steroid she was prescribed. Recommended against using Tessalon in the future as she is likely reacting to this
ED Attending Note
-
Portions of this chart may have been created with voice recognition software.� Occasional wrong word or��sound alike� substitutions may have occurred due to the inherent limitations of voice recognition software.
Discharge Plan
Departure
Patient Disposition: Home (Routine Discharge)
Date of Disposition: 11/25/24
Time of Disposition: 18:52
Patient with high blood pressure during this ER visit?: No
Discharge Problem:
Hypertension
Instructions: High Blood Pressure (DC)
Prescriptions:
No Action
sennosides [senna] 8.6 mg Tablet
8.6 mg PO BIDPRN PRN (Reason: constipation-if bm aftr miralax)
acetaminophen [Tylenol] 325 mg Tablet
650 mg PO Q4HPRN PRN (Reason: mild pain)
polyethylene glycol 3350 [Miralax] 17 gram Powder In Packet
17 g PO DAILYPRN PRN (Reason: constipation)
metformin 1,000 mg Tablet
1,000 mg PO BID
simethicone 80 mg Tablet,Chewable
80 mg PO TIDPRN PRN (Reason: gas pains)
atorvastatin 10 mg Tablet
10 mg PO DAILY Qty: 0 0RF
pantoprazole 40 mg tablet,delayed release (DR/EC)
20 mg PO BID
hydroxyzine HCl 25 mg Tablet
25 mg PO BID PRN (Reason: rash)
losartan 50 mg tablet
50 mg PO DAILY
Referrals:
Isabela Lazaro MD [Family Provider] -
Activity Restrictions/Additional Instructions:
Continue current blood pressure regimen. Take prednisone as prescribed. Return if needed.
Interventions
Interventions:
*Risk Screen - Suicide Last Done: 11/25/24 16:32
*General Assessment Last Done: 11/25/24 16:32
*Neglect/Abuse Screening Last Done: 11/25/24 16:32
*ED COVID-19 Vaccine History Last Done: 11/25/24 16:32
Discharge Date and Time
Print Language: GEORGIAN
[2024-11-25 16:28] VITALS: BMI 20.9
[2024-11-25 16:32] VITALS: BP 163/82
[2024-11-25] MEDS: DELTASONE 50 MG PO (16:40)
[2024-11-25] MEDS: TYLENOL 650 MG PO (16:40)
--- NOTE | 2024-11-25 16:54 | EDRN ---
this ASSEMBLY LINE UPHOLSTERER noted this pts ordered Troponin blood test ordered at 1147 this morning was COLLECTED per [facility]. However there is NO Troponin result in the pts chart. This ASSEMBLY LINE UPHOLSTERER called the lab and spoke with phlebotomy lab assistant Tez who stated this pts Troponin
was never received by the lab. ER PA Morales Bone was notified of the above delay in patient care. this ASSEMBLY LINE UPHOLSTERER placed IV access and obtained a new Troponin blood test and sent to the lab immediately.
[2024-11-25 17:00] VITALS: BP 176/84
[2024-11-25 17:39] LABS: Troponin I < 0.012 ng/ml
[2024-11-25 18:00] VITALS: BP 175/95
== END 2024-11-25 19:11 | disposition home or self-care (01) ==
LOC: EMR 11:27
PROVIDERS: Emergency Medicine; EMERGENCY PHYSICIAN Emergency Medicine; FAMILY PHYSICIAN Internal Medicine
DX: I10 Essential (primary) hypertension (principal)
CPT/HCPCS: 99284; 80053; 84484; 85025; 93005